=== PATIENT | male | born 1985 | race American Indian/Alaskan Native ===

== ENCOUNTER 2016-10-04 23:24 | Inpatient (IN) | payer OTHER ==
[2016-10-05 01:04] LABS: Basophils % (Auto) 0.7 % (0.0-1.8); Eosinophils % (Auto) 3.5 % (0.0-4.3); Hematocrit 44.7 % (35.5-45.6); Hemoglobin 15.2 gm/dl (11.8-15.2); Mean Corpuscular HGB Conc 34 % (32-34); Mean Corpuscular Hemoglobin 28 pg (28-32); Mean Corpuscular Volume 82 fl (84-94); Platelet Count 156 K/mm3 (140-440); Red Blood Count 5.43 M/mm3 (3.65-5.03); Red Cell Distribution Width 13.3 % (13.2-15.2); White Blood Count 5.7 K/mm3 (4.5-11.0)
[2016-10-05 01:30] LABS: Alanine Aminotransferase 42 units/L (7-56); Albumin/Globulin Ratio 0.9 %; Alkaline Phosphatase 94 units/L (35-129); Anion Gap 24 mmol/L; BUN/Creatinine Ratio 18.33; Blood Urea Nitrogen 22 mg/dL (9-20); Calcium 9.1 mg/dL (8.4-10.2); Carbon Dioxide 19 mmol/L (22-30); Chloride 89.1 mmol/L (98-107); Lipase 49 units/L (13-60); Potassium 4.6 mmol/L (3.6-5.0); Sodium 127 mmol/L (137-145); Total Protein 8.4 g/dL (6.3-8.2)
[2016-10-05 01:45] LABS: Glucose 540 mg/dL (75-100)
[2016-10-05 03:07] LABS: Bilirubin,Urine NEG (Negative); Blood,Urine MOD (Negative); Ketones,Urine 20 mg/dL (Negative); Leukocyte Esterase,Urine NEG (Negative); Mucus,Urine FEW /HPF; Nitrite,Urine NEG (Negative); Protein,Urine <15 mg/dL mg/dL (Negative); Urobilinogen,Urine < 2.0 mg/dL (<2.0)
[2016-10-05] MEDS ORDERED: NACL 0.9% 1000 ML 1,000 ML IV ONE ×2 (04:08)
--- NOTE | 2016-10-05 04:10 | Emergency Department Report ---
ED General Adult HPI - General Chief complaint: Dizziness Stated complaint: DRY MOUTH/DIZZY/LOWER BACK PAIN Time Seen by Provider: 10/05/16 04:00 Source: patient Mode of arrival: Ambulatory Limitations: No Limitations - History of Present Illness Initial comments: 31-year-old male with a past medical history asthma and seizures presents to the hospital with complaints of not feeling well for about 1 week. Patient complains of generalized body aches, fatigue, and lightheadedness. When questioned he does admit to increased urine output for the last 4 days and increased thirst typically in the morning. He has intermittent tingling to his fingertips. Patient had one episode of nausea and vomiting several days ago and has intermittent loose stools. No reports of fever fever. Patient complains of mild abdominal pain that started after arrival. No previous history of diabetes. No PMD. - Related Data Previous Rx's Medication Instructions Recorded Last Taken Type ALBUTEROL Inhaler [Proair] 2 puff IH QID PRN #1 inh 06/28/15 Unknown Rx Azithromycin [Zithromax Z-SHAHNAZ] 250 mg PO DAILY #6 tablet 06/28/15 Unknown Rx Guaifenesin/Codeine Phosphate 5 - 10 ml PO Q6H PRN #120 ml 06/28/15 Unknown Rx [Guaifenesin-Codeine Liquid] predniSONE [Deltasone] 40 mg PO QDAY #10 tab 06/28/15 Unknown Rx Allergies Allergy/AdvReac Type Severity Reaction Status Date / Time No Known Allergies Allergy Verified 06/28/15 06:43 ED Review of Systems ROS: Stated complaint: DRY MOUTH/DIZZY/LOWER BACK PAIN Other details as noted in HPI Comment: All other systems reviewed and negative Other: Constitutional: No fevers chills Eyes: No eye pain visual changes ENT: No ear pain or throat pain Neck: Denies pain Respiratory: Denies cough wheezing shortness of breath Cardiovascular: Denies chest pain, palpitations, syncope GI: As per HPI : Denies dysuria Musculoskeletal: Denies back pain, Skin: Denies rash, lesions, erythema Neurologic: Denies headache, numbness, weakness Psychiatric: Denies suicidal ideation, hallucinations ED Past Medical Hx - Past Medical History Previous Medical History?: Yes Hx Seizures: Yes Hx Asthma: Yes - Surgical History Past Surgical History?: No - Social History Smoking Status: Current Every Day Smoker Substance Use Type: Marijuana - Medications Home Medications: Home Medications Medication Instructions Recorded Confirmed Last Taken Type ALBUTEROL Inhaler [Proair] 2 puff IH QID PRN #1 inh 06/28/15 Unknown Rx Azithromycin [Zithromax Z-SHAHNAZ] 250 mg PO DAILY #6 tablet 06/28/15 Unknown Rx Guaifenesin/Codeine Phosphate 5 - 10 ml PO Q6H PRN #120 ml 06/28/15 Unknown Rx [Guaifenesin-Codeine Liquid] predniSONE [Deltasone] 40 mg PO QDAY #10 tab 06/28/15 Unknown Rx ED Physical Exam - General Limitations: No Limitations - Other Other exam information: General: No limitations, patient is alert in no acute distress Head exam: Atraumatic, normocephalic Eyes exam: Normal appearance, nonicteric sclera ENT: Moist mucous membrane Neck exam: Normal inspection, full range of motion, no meningismus nontender Respiratory exam: Clear to auscultation bilateral, no wheezes, rales, crackles Cardiovascular: Normal rate and rhythm, normal heart sounds Abdomen: Soft, nondistended, with normal bowel sounds, no rebound, or guarding. Mild right lower quadrant tenderness described as a "tightness" Extremity: Full range of motion normal inspection no deformity Back: Normal Inspection, full range of motion, no tenderness Neurologic: Alert, oriented x3, cranial nerves intact, no motor or sensory deficit Psychiatric: normal affect, normal mood Skin: Warm, dry, intact ED Course Vital Signs 10/05/16 00:13 Temperature 99.6 F Pulse Rate 103 H Respiratory 20 Rate Blood Pressure 135/82 O2 Sat by Pulse 96 Oximetry - Reevaluation(s) Reevaluation #1: 10/05/16 04:14 Meds ordered: 2 L normal saline, regular insulin 10 units ED Medical Decision Making - Lab Data Result diagrams: 10/05/16 00:39 10/05/16 00:39 Lab Results 10/05/16 10/05/16 10/05/16 Range/Units 00:39 00:39 03:47 WBC 5.7 (4.5-11.0) K/mm3 RBC 5.43 H (3.65-5.03) M/mm3 Hgb 15.2 (11.8-15.2) gm/dl Hct 44.7 (35.5-45.6) % MCV 82 L (84-94) fl MCH 28 (28-32) pg MCHC 34 (32-34) % RDW 13.3 (13.2-15.2) % Plt Count 156 (140-440) K/mm3 Lymph % (Auto) 33.8 (13.4-35.0) % [place] % (Auto) 5.5 (0.0-7.3) % Eos % (Auto) 3.5 (0.0-4.3) % Baso % (Auto) 0.7 (0.0-1.8) % Lymph # 1.9 (1.2-5.4) K/mm3 [place] # 0.3 (0.0-0.8) K/mm3 Eos # 0.2 (0.0-0.4) K/mm3 Baso # 0.0 (0.0-0.1) K/mm3 Seg Neutrophils % 56.5 (40.0-70.0) % Seg Neutrophils # 3.2 (1.8-7.7) K/mm3 Sodium 127 L (137-145) mmol/L Potassium 4.6 (3.6-5.0) mmol/L Chloride 89.1 L (98-107) mmol/L Carbon Dioxide 19 L (22-30) mmol/L Anion Gap 24 mmol/L BUN 22 H (9-20) mg/dL Creatinine 1.2 (0.8-1.5) mg/dL Estimated GFR > 60 ml/min BUN/Creatinine Ratio 18.33 % Glucose 540 H* (75-100) mg/dL POC Glucose 456 H (70-105) Calcium 9.1 (8.4-10.2) mg/dL Total Bilirubin 0.30 (0.1-1.2) mg/dL AST 39 (5-40) units/L ALT 42 (7-56) units/L Alkaline Phosphatase 94 (35-129) units/L Total Protein 8.4 H (6.3-8.2) g/dL Albumin 4.0 (3.9-5) g/dL Albumin/Globulin Ratio 0.9 % Lipase 49 (13-60) units/L Urine Color (Yellow) Urine Turbidity (Clear) Urine pH (5.0-7.0) Ur Specific [place] (1.003-1.030) Urine Protein (Negative) mg/dL Urine Glucose (UA) (Negative) mg/dL Urine Ketones (Negative) mg/dL Urine Blood (Negative) Urine Nitrite (Negative) Urine Bilirubin (Negative) Urine Urobilinogen (<2.0) mg/dL Ur Leukocyte Esterase (Negative) Urine WBC (Auto) (0.0-6.0) /HPF Urine RBC (Auto) (0.0-6.0) /HPF U Epithel Cells (Auto) (0-13.0) /HPF Urine Mucus /HPF 10/05/16 Range/Units Unknown WBC (4.5-11.0) K/mm3 RBC (3.65-5.03) M/mm3 Hgb (11.8-15.2) gm/dl Hct (35.5-45.6) % MCV (84-94) fl MCH (28-32) pg MCHC (32-34) % RDW (13.2-15.2) % Plt Count (140-440) K/mm3 Lymph % (Auto) (13.4-35.0) % [place] % (Auto) (0.0-7.3) % Eos % (Auto) (0.0-4.3) % Baso % (Auto) (0.0-1.8) % Lymph # (1.2-5.4) K/mm3 [place] # (0.0-0.8) K/mm3 Eos # (0.0-0.4) K/mm3 Baso # (0.0-0.1) K/mm3 Seg Neutrophils % (40.0-70.0) % Seg Neutrophils # (1.8-7.7) K/mm3 Sodium (137-145) mmol/L Potassium (3.6-5.0) mmol/L Chloride (98-107) mmol/L Carbon Dioxide (22-30) mmol/L Anion Gap mmol/L BUN (9-20) mg/dL Creatinine (0.8-1.5) mg/dL Estimated GFR ml/min BUN/Creatinine Ratio % Glucose (75-100) mg/dL POC Glucose (70-105) Calcium (8.4-10.2) mg/dL Total Bilirubin (0.1-1.2) mg/dL AST (5-40) units/L ALT (7-56) units/L Alkaline Phosphatase (35-129) units/L Total Protein (6.3-8.2) g/dL Albumin (3.9-5) g/dL Albumin/Globulin Ratio % Lipase (13-60) units/L Urine Color Straw (Yellow) Urine Turbidity Clear (Clear) Urine pH 5.0 (5.0-7.0) Ur Specific [place] 1.029 (1.003-1.030) Urine Protein <15 mg/dl (Negative) mg/dL Urine Glucose (UA) >=500 (Negative) mg/dL Urine Ketones 20 (Negative) mg/dL Urine Blood Mod (Negative) Urine Nitrite Neg (Negative) Urine Bilirubin Neg (Negative) Urine Urobilinogen < 2.0 (<2.0) mg/dL Ur Leukocyte Esterase Neg (Negative) Urine WBC (Auto) 1.0 (0.0-6.0) /HPF Urine RBC (Auto) 1.0 (0.0-6.0) /HPF U Epithel Cells (Auto) < 1.0 (0-13.0) /HPF Urine Mucus Few /HPF - Medical Decision Making Plan to admit patient to the hospital for further treatment of new onset diabetes with associated hypoglycemia urine ketosis. Venous pH pending. Mild associated anion gap - Differential Diagnosis diabetes, DKA, hyperglycemia, UTI, viral syndrome Critical Care Time: No Critical care attestation.: If time is entered above; I have spent that time in minutes in the direct care of this critically ill patient, excluding procedure time. ED Disposition Clinical Impression: Diabetes mellitus, new onset, Urine ketones Disposition: 09 OP ADMIT IP TO THIS HOSP Is pt being admited?: Yes Condition: Stable Time of Disposition: 04:09 (Dr Young/hosp)
[2016-10-05] MEDS ORDERED: D50W (25GM) IV PRN ×3 (04:56→17:49)
[2016-10-05] MEDS ORDERED: NACL 0.9% 1000 ML 1,000 ML IV SCH ×2 (05:00→11:00)
[2016-10-05] MEDS ORDERED: NovoLIN R 100 UNITS in NACL 0.9% 99 ML IV SCH (05:00)
[2016-10-05] MEDS: HEPARIN SUB-Q SCH ×3 (05:32→22:00)
--- NOTE | 2016-10-05 05:32 | History and Physical Report ---
History of Present Illness Date of examination: 10/05/16 Date of admission: 10/05/16 Chief complaint: Chief complaint is dizziness other complaint include polyuria and polydipsia and weakness History of present illness: History of presenting illness, patient is a 31-year-old male who said he has been having dizziness going on for some time and has been feeling tired recently patient also noted increased urination and increased intake of water for the last few days, there is also history of weight loss and weakness. Patient denied history of fever or chills denied history of nausea vomiting but said that he's been having generalized body pain especially in the abdomen, there is no history of chest pain or shortness of breath Past History Past Medical History: hypertension, seizures, other (ASTHMA) Past Surgical History: No surgical history Social history: smoking Family history: diabetes Medications and Allergies Allergies Allergy/AdvReac Type Severity Reaction Status Date / Time No Known Allergies Allergy Verified 06/28/15 06:43 Home Medications Medication Instructions Recorded Confirmed Last Taken Type ALBUTEROL Inhaler [Proair] 2 puff IH QID PRN #1 inh 06/28/15 Unknown Rx Azithromycin [Zithromax Z-SHAHNAZ] 250 mg PO DAILY #6 tablet 06/28/15 Unknown Rx Guaifenesin/Codeine Phosphate 5 - 10 ml PO Q6H PRN #120 ml 06/28/15 Unknown Rx [Guaifenesin-Codeine Liquid] predniSONE [Deltasone] 40 mg PO QDAY #10 tab 06/28/15 Unknown Rx Active Meds: Active Medications Dextrose (D50w (25gm)) 0 ml IV PRN PRN PRN Reason: Hypoglycemia Heparin Sodium (Porcine) (Heparin) 5,000 unit SUB-Q Q8HR MERISSA Sodium Chloride (Nacl 0.9% 1000 Ml) 1,000 mls @ 300 mls/hr IV DIRECT MERISSA Stop: 10/05/16 08:19 Insulin Human Regular 100 (units/ Sodium Chloride) 100 mls @ 1 mls/hr IV TITR MERISSA; 1 UNITS/HR PRN Reason: Protocol Review of Systems Constitutional: weight loss, weakness, no weight gain, no fever, no chills, no sweats, no anorexia, no fatigue, no malaise, no lethargy, no daytime sleepiness Eyes: bilateral: other (NO BILATERAL EYE SYMPTOMS) Ears, nose, mouth and throat: no ear pain, no ear discharge, no tinnitis, no decreased hearing, no nose pain, no nasal congestion, no nasal discharge, no sinus pressure, no bleeding gums, no dental pain, no mouth pain, no dysphagia, no hoarseness, no sore throat, no swelling in mouth, no swelling in throat, no post-nasal drip, no headache, no vertigo, no pain front of neck, no neck fullness/pressure Cardiovascular: no chest pain, no orthopnea, no palpitations, no rapid/ irregular heart beat, no edema, no syncope, no lightheadedness, no shortness of breath, no paroxysmal nocturnal dyspnea, no claudication, no phlebitis, no high blood pressure Respiratory: no cough, no excessive sputum, no hemoptysis, no wheezing, no respiratory infections Gastrointestinal: abdominal pain, no nausea, no vomiting, no diarrhea, no constipation, no change in bowel habits, no hematemesis, no melena, no hematochezia, no loss of appetite, no jaundice, no dyspepsia/bloating, no early satiety Genitourinary Male: urinary frequency, nocturia, polyuria, no dysuria, no hematuria, no flank pain, no discharge, no urinary hesitancy, no incontinence, no erectile dysfunction, no impotence, no decreased libido, no testicular pain, no testicular lump, no difficulties fathering child Rectal: no pain, no incontinence, no itching, no hemorrhoids, no flatulence Musculoskeletal: myalgias, no neck stiffness, no neck pain, no arm numbness/ tingling, no low back pain, no shooting leg pain, no hot joints, no morning stiffness, no atrophy, no fractures, no loss of height Integumentary: no pruritis, no redness, no sores, no wounds, no jaundice, no boils, no blisters, no bullae, no lesions, no darkening of skin, no depigmentation, no acne, no dryness, no brittle nails, no striae, no hirsutism, no foot/leg ulcers Neurological: seizures, no head injury, no transient paralysis, no paralysis, no weakness, no parathesias, no numbness, no tingling, no syncope, no vertigo, no headaches, no migraines, no convulsions, no aphasia, no change in speech, no change in mentation, no confusion, no memory loss, no motor disturbance, no sensory deficit, no double vision, no hearing difficulties, no burning pain, no paralysis Psychiatric: no memory loss, no change in sleep habits, no sleep disturbances, no insomnia, no hypersomnia, no change in appetite, no change in libido, no suicidal ideation, no disorientation, no paranoia, no hopelessness, no anhedonia , no anxiety attacks, no difficulties concentrating, no confusion, no irritability Endocrine: excessive thirst, polydipsia, polyuria, nocturia, no cold intolerance , no heat intolerance, no polyphagia, no excessive sweating, no flushing, no thyroid mass, no palpatations, no high blood sugars, no low blood sugars, no recent glucocorticoid use Hematologic/Lymphatic: no easy bruising, no easy bleeding, no lymphadenopathy, no lymphedema, no thrombophilia Allergic/Immunologic: no urticaria, no allergic rhinitis, no persistent infections, no anaphylaxis, no angioedema, no gluten intolerance, no seasonal allergies Exam - Constitutional Vitals: Temp Pulse Resp BP Pulse Ox 99.6 F 93 H 10 L 141/89 99 10/05/16 00:13 10/05/16 05:00 10/05/16 05:00 10/05/16 05:00 10/05/16 05:00 General appearance: Present: no acute distress - EENT Eyes: Present: PERRL, EOM intact ENT: clear oral mucosa, dentition normal, no oropharyngeal erythema, no poor dentition, no edentulous - Neck Neck: Present: supple, normal ROM. Absent: enlarged thyroid, masses or JVD, carotid bruits - Respiratory Respiratory effort: normal - Cardiovascular Rhythm: regular Heart Sounds: Present: S1 & S2. Absent: gallop, systolic murmur, diastolic murmur, click - Extremities Extremities: no ischemia, No edema Peripheral Pulses: within normal limits - Abdominal General gastrointestinal: Present: soft, non-tender, non-distended. Absent: tender, distended, rigid, hepatomegaly, splenomegaly, mass, hernia Male genitourinary: Present: deferred - Rectal Rectal Exam: deferred - Integumentary Integumentary: Present: clear, warm, dry, normal turgor. Absent: erythema, jaundice, clammy - Musculoskeletal Musculoskeletal: strength equal bilaterally - Psychiatric Psychiatric: appropriate mood/affect - Neurologic Neurologic: CNII-XII intact Results - Labs CBC & Chem 7: 10/05/16 00:39 07 00:39 Labs: Laboratory Last Values WBC 5.7 K/mm3 (4.5-11.0) 10/05/16 00:39 RBC 5.43 M/mm3 (3.65-5.03) H 10/05/16 00:39 Hgb 15.2 gm/dl (11.8-15.2) 10/05/16 00:39 Hct 44.7 % (35.5-45.6) 10/05/16 00:39 MCV 82 fl (84-94) L 10/05/16 00:39 MCH 28 pg (28-32) 10/05/16 00:39 MCHC 34 % (32-34) 10/05/16 00:39 RDW 13.3 % (13.2-15.2) 10/05/16 00:39 Plt Count 156 K/mm3 (140-440) 10/05/16 00:39 Lymph % (Auto) 33.8 % (13.4-35.0) 10/05/16 00:39 [place] % (Auto) 5.5 % (0.0-7.3) 10/05/16 00:39 Eos % (Auto) 3.5 % (0.0-4.3) 10/05/16 00:39 Baso % (Auto) 0.7 % (0.0-1.8) 10/05/16 00:39 Lymph # 1.9 K/mm3 (1.2-5.4) 10/05/16 00:39 [place] # 0.3 K/mm3 (0.0-0.8) 10/05/16 00:39 Eos # 0.2 K/mm3 (0.0-0.4) 10/05/16 00:39 Baso # 0.0 K/mm3 (0.0-0.1) 10/05/16 00:39 Seg Neutrophils % 56.5 % (40.0-70.0) 10/05/16 00:39 Seg Neutrophils # 3.2 K/mm3 (1.8-7.7) 10/05/16 00:39 VBG pH 7.358 (7.320-7.420) 10/05/16 04:15 Sodium 127 mmol/L (137-145) L 10/05/16 00:39 Potassium 4.6 mmol/L (3.6-5.0) 10/05/16 00:39 Chloride 89.1 mmol/L (98-107) L 10/05/16 00:39 Carbon Dioxide 19 mmol/L (22-30) L 10/05/16 00:39 Anion Gap 24 mmol/L 10/05/16 00:39 BUN 22 mg/dL (9-20) H 10/05/16 00:39 Creatinine 1.2 mg/dL (0.8-1.5) 10/05/16 00:39 Estimated GFR > 60 ml/min 10/05/16 00:39 BUN/Creatinine Ratio 18.33 % 10/05/16 00:39 Glucose 540 mg/dL (75-100) H* 10/05/16 00:39 POC Glucose 440 (70-105) H 10/05/16 05:06 Calcium 9.1 mg/dL (8.4-10.2) 10/05/16 00:39 Total Bilirubin 0.30 mg/dL (0.1-1.2) 10/05/16 00:39 AST 39 units/L (5-40) 10/05/16 00:39 ALT 42 units/L (7-56) 10/05/16 00:39 Alkaline Phosphatase 94 units/L (35-129) 10/05/16 00:39 Total Protein 8.4 g/dL (6.3-8.2) H 10/05/16 00:39 Albumin 4.0 g/dL (3.9-5) 10/05/16 00:39 Albumin/Globulin Ratio 0.9 % 10/05/16 00:39 Lipase 49 units/L (13-60) 10/05/16 00:39 Urine Color Straw (Yellow) 10/05/16 Unknown Urine Turbidity Clear (Clear) 10/05/16 Unknown Urine pH 5.0 (5.0-7.0) 10/05/16 Unknown Ur Specific [place] 1.029 (1.003-1.030) 10/05/16 Unknown Urine Protein <15 mg/dl mg/dL (Negative) 10/05/16 Unknown Urine Glucose (UA) >=500 mg/dL (Negative) 10/05/16 Unknown Urine Ketones 20 mg/dL (Negative) 10/05/16 Unknown Urine Blood Mod (Negative) 10/05/16 Unknown Urine Nitrite Neg (Negative) 10/05/16 Unknown Urine Bilirubin Neg (Negative) 10/05/16 Unknown Urine Urobilinogen < 2.0 mg/dL (<2.0) 10/05/16 Unknown Ur Leukocyte Esterase Neg (Negative) 10/05/16 Unknown Urine WBC (Auto) 1.0 /HPF (0.0-6.0) 10/05/16 Unknown Urine RBC (Auto) 1.0 /HPF (0.0-6.0) 10/05/16 Unknown U Epithel Cells (Auto) < 1.0 /HPF (0-13.0) 10/05/16 Unknown Urine Mucus Few /HPF 10/05/16 Unknown Assessment and Plan - Patient Problems (1) DKA (diabetic ketoacidoses) Current Visit: Yes Status: Acute Qualifiers: Diabetes mellitus type: D Diabetes mellitus complication detail: D Plan to address problem: Patient will be admitted to the unit for DKA using DKA pathway and will be on IV insulin drip by protocol, patient will also be on IV normal saline starting at 300 mL an hour I will have Accu-Chek every hour and basic metabolic panel and every 2 hours. Patient's IV fluid will be changed to D5 half-normal with potassium supplement when blood sugar is below 250 mg/dl patient will be on IV Zofran for nausea vomiting
[2016-10-05 06:30] LABS: Anion Gap 20 mmol/L; BUN/Creatinine Ratio 15.83; Blood Urea Nitrogen 19 mg/dL (9-20); Carbon Dioxide 21 mmol/L (22-30); Chloride 93.5 mmol/L (98-107); Glucose 479 mg/dL (75-100); Potassium 3.9 mmol/L (3.6-5.0); Sodium 131 mmol/L (137-145)
[2016-10-05 06:44] LABS: Magnesium 2.1 mg/dL (1.7-2.3); Phosphorous 2.8 mg/dL (2.5-4.5)
--- NOTE | 2016-10-05 08:15 | Consultation ---
History of Present Illness Consult date: 10/05/16 Requesting physician: STANLEY WU History of present illness: Patient is a 31-year-old male who said he has been having dizziness going on for some time and has been feeling tired recently patient also noted increased urination and increased intake of water for the last few days, there is also history of weight loss and weakness. Patient denied history of fever or chills denied history of nausea vomiting but said that he's been having generalized body pain especially in the abdomen, there is no history of chest pain or shortness of breath. Patient has diabetic ketoacidosis and has been admitted to the ICU for DKA management per protocol Past History Past Medical History: hypertension, seizures, other (ASTHMA) Past Surgical History: No surgical history Social history: smoking Family history: diabetes Medications and Allergies Allergies Allergy/AdvReac Type Severity Reaction Status Date / Time No Known Allergies Allergy Verified 06/28/15 06:43 Home Medications Medication Instructions Recorded Confirmed Last Taken Type No Known Home Medications [No 10/05/16 10/05/16 Unknown History Reported Home Medications] Active Meds: Active Medications Dextrose (D50w (25gm)) 0 ml IV PRN PRN PRN Reason: Hypoglycemia Heparin Sodium (Porcine) (Heparin) 5,000 unit SUB-Q Q8HR MERISSA Last Admin: 10/05/16 05:32 Dose: 5,000 unit Sodium Chloride (Nacl 0.9% 1000 Ml) 1,000 mls @ 300 mls/hr IV DIRECT MERISSA Stop: 10/05/16 08:19 Last Admin: 10/05/16 05:32 Dose: 300 mls/hr Insulin Human Regular 100 (units/ Sodium Chloride) 100 mls @ 1 mls/hr IV TITR MERISSA; 1 UNITS/HR PRN Reason: Protocol Last Titration: 10/05/16 06:56 Dose: 7 units/hr, 7 mls/hr Review of Systems All systems: negative (as documented in HPI) Physical Examination Vital signs: Vital Signs Temp Pulse Resp BP Pulse Ox 99.6 F 103 H 20 135/82 96 10/05/16 00:13 10/05/16 00:13 10/05/16 00:13 10/05/16 00:13 10/05/16 00:13 General appearance: no acute distress, other (obese) Eyes: non-icteric ENT: oropharynx dry Neck: supple, no lymphadenopathy, no JVD Effort: mildly labored Ascultation: Bilateral: clear, diminished breath sounds Cardiovascular: regular rate and rhythm Gastrointestinal: normoactive bowel sounds, soft, non-tender, non-distended Integumentary: normal Extremities: no cyanosis, no edema, pink and warm, pulses normal, no ischemia or petechiae Musculoskeletal: no deformities normal mental status, non-focal exam, pupils equal and round, CN II-XII normal, motor strength normal and mood appropriate, affect normal Results - Laboratory Findings CBC and BMP: 10/05/16 00:39 10/05/16 21:30 Abnormal lab findings: Abnormal Labs 10/05/16 10/05/16 10/05/16 05:06 05:43 06:01 Sodium 131 L Chloride 93.5 L Carbon Dioxide 21 L Glucose 479 H POC Glucose 440 H 456 H Calcium 8.0 L 10/05/16 10/05/16 06:49 07:50 Sodium Chloride Carbon Dioxide Glucose POC Glucose 353 H 296 H Calcium - Diagnostic Findings Chest x-ray: image reviewed Assessment and Plan - Patient Problems (1) DKA (diabetic ketoacidoses) Current Visit: Yes Status: Acute Qualifiers: Diabetes mellitus type: D Diabetes mellitus complication detail: D Plan to address problem: Continue with DKA management per protocol Diabetic education (2) Diabetes mellitus, new onset Current Visit: Yes Status: Acute Plan to address problem: Get HBA1C, get fasting lipids, get TSH Diabetic education (3) Obesities, morbid Current Visit: Yes Status: Acute Qualifiers: Obesity type: O Plan to address problem: Lifestyle modifications, diet and exercise counselling
[2016-10-05 08:25] LABS: Anion Gap 19 mmol/L; BUN/Creatinine Ratio 15.45; Blood Urea Nitrogen 17 mg/dL (9-20); Carbon Dioxide 22 mmol/L (22-30); Chloride 98.5 mmol/L (98-107); Glucose 369 mg/dL (75-100); Potassium 3.6 mmol/L (3.6-5.0); Sodium 136 mmol/L (137-145)
--- NOTE | 2016-10-05 09:06 | Admit Criteria Form ---
Admission Criteria Documentation: GENERAL ADMISSION CRITERIA (Place 'X' for any and all applicable criteria): Admission is indicated for ANY ONE of the following: [ ]I. Hemodynamic instability as indicated by ANY ONE of the following(1)(2) (3)(4)(5): [ ]a) Vital sign abnormality not readily corrected by appropriate treatment within 12 to 24 hours indicated by ANY ONE of the following: [ ]i) Hypotension [ ]ii) Symptomatic Tachycardia unresponsive to treatment (eg , analgesia, fluids, sedation as indicated) [ ]iii) Orthostatic vital sign changes unresponsive to treatment (eg, fluids) [ ]b) Vital sign abnormality that is severe indicated by ANY ONE of the following: [ ]i) Inadequate perfusion indicated by ANY ONE of the following: [ ]1) Lactic acidosis (greater than 2 mmol/L) [ ]2) New abnormal capillary refill (greater than 3 seconds) [ ]3) Other metabolic acidosis (arterial pH less than 7.35) not otherwise explained [ ]4) Reduced urine output [ ]5) Altered mental status [ ]6) Myocardial Ischemia [ ]v) Mean arterial pressure[A] less than 60 mm Hg [ ]vi) Mean arterial pressure[A] less than 70 mm Hg after 30 minutes of appropriate treatment (eg, fluid resuscitation) [ ]vii) IV inotropic or vasopressor medication required to maintain adequate blood pressure or perfusion [ ]viii) Sustained heart rate greater than 120 beats per minute in adult or child 6 years or older[B]] [ ]II. Hypertension requiring inpatient treatment as indicated by ANY ONE of the following(6)(7)(8): [ ]a) SBP greater than 220 mm Hg or DBP greater than 120 mm Hg despite treatment [ ]b) SBP greater than 140 mm Hg or DBP greater than 100 mm Hg with evidence of acute end organ damage as indicated by ANY ONE of the following: [ ]i) Encephalopathy [ ]ii) Acute renal failure as indicated by new onset of ANY ONE of the following(9)(10)(11)(12)(13): [ ]1) A 3-fold rise in serum creatinine from baseline [ ]2) Serum creatinine greater than 4 mg/dL ( 354 micromoles/L) with acute rise greater than 0.5 mg/dL (44.2 micromoles/L) [ ]3) Reduction of more than 75% in estimated glomerular filtration rate from baseline [ ]4) Estimated glomerular filtration rate less than 35 mL/min/1.73m2 (0.59 mL/sec/1.73m2) in child up to 18 years of age [ ]5) Cessation of urine output indicated by ALL of the following: [ ]A. Adequate volume status [ ]B. Inadequate urine output as indicated by ANY ONE of the following: [ ]a. Urine output less than 0.3 mL/kg/hr for 24 hours [ ]b. Anuria (urine output less than 0.1 mL/kg/hr) for 12 hours [ ]iii) Aortic dissection [ ]iv) Myocardial ischemia [ ]v) Left ventricular heart failure [ ]vi) Retinal hemorrhage [ ]vii) Other significant finding [ ]c) Hypertension in child requiring inpatient treatment as indicated by ALL of the following(14)(15)(16): [ ]i) Outpatient treatment not effective, not available, or not appropriate [ ]ii) SBP or DBP greater than 95th percentile for age [ ]iii) Evidence of acute end organ damage as indicated by ANY ONE of the following: [ ]1) Altered mental status [ ]2) Acute renal failure as indicated by new onset of ANY ONE of the following(9)(10)(11)(12)(13): [ ]A. A 3-fold rise in serum creatinine from baseline [ ]B. Serum creatinine greater than 4 mg/dL (354 micromoles/L) with acute rise greater than 0.5 mg/dL (44.2 micromoles/L) [ ]C. Reduction of more than 75% in estimated glomerular filtration rate from baseline [ ]D. Estimated glomerular filtration rate less than 35 mL/min/1.73m2 (0.59 mL/sec/1.73m2)in child up to 18 years of age [ ]E. Cessation of urine output indicated by ALL of the following: [ ]a. Adequate volume status [ ]b. Inadequate urine output as indicated by ANY ONE of the following: [ ]1) Urine output less than 0.3 mL/kg/hr for 24 hours [ ]2) Anuria (urine output less than 0.1 mL/kg/hr) for 12 hours [ ]3) Severe headache [ ]4) Visual disturbance [ ]5) Retinal hemorrhage [ ]6) Other significant finding [ ]III. Acute cardiac or peripheral ischemia as indicated by ANY ONE of the following: [ ]a) Acute coronary syndrome(17)(18) [ ]b) Acute peripheral ischemia (eg, pulseless, cool, mottled, or cyanotic extremity)(19) [ ]IV. Cardiac arrhythmias or findings of immediate concern indicated by ANY ONE of the following(20)(21): [ ]a) Heart rhythms that are inherently dangerous or unstable indicated by ANY ONE of the following(22)(23)(24): [ ]i) Resuscitated ventricular fibrillation or cardiac arrest [ ]ii) Ventricular escape rhythm [ ]iii) Sustained ventricular tachycardia (30 seconds or more of ventricular rhythm at greater than 100 beats per minute) [ ]iv) Nonsustained ventricular tachycardia and ANY ONE of the following: [ ]1) Suspected cardiac ischemia as cause or consequence of ventricular tachycardia [ ]2) In setting of acute myocarditis [ ]b) Unstable cardiac conduction defects indicated by ANY ONE of the following(24)(25)(26): [ ]i) Type II second-degree atrioventricular block [ ]ii) Third-degree atrioventricular block [ ]iii) New-onset left bundle branch block with suspected myocardial ischemia [ ]c) Any heart rhythm and ANY ONE of the following(22)(23)(27)(28)( 29): [ ] i) Continuous long-term ECG monitoring needed (eg, initiation of drug requiring monitoring for more than 24 hours) [ ] ii) Patient has automatic implanted cardioverter defibrillator that is repeatedly firing, malfunctioning, or in need of immediate adjustment of settings beyond the scope of ambulatory or observation care. [ ]d) Heart rhythms of concern due to ANY ONE of the following: [ ]i) Hypotension [ ]ii) Respiratory distress [ ]iii) Association with other significant symptoms (eg, bradycardia with syncope or ongoing dizziness, supraventricular tachycardia with chest pain) (27)(28) (30) [ ] V. Severe heart failure as indicated by ANY ONE of the following ( 31)(32): [ ]a) Respiratory distress [ ]b) Hypotension [ ]c) Anasarca (refractory to outpatient therapy) [ ]d) Cardiac arrhythmias of immediate concern [ ]e) Myocardial ischemia [ ]. Respiratory abnormalities, including ANY ONE of the following(33)(34) (35)(36): [ ]a) Respiratory rate greater than 30 breaths per minute unresponsive to treatment [A] [ ]b) New saturation of arterial oxygen less than 90% [ ]c) New partial pressure of carbon dioxide greater than 44 mm Hg ( 5.9 kPa) [ ]d) Supplemental oxygen or respiratory treatments needed that are new or not performable at other levels of care [ ]e) New-onset cyanosis [ ]f) Inability to protect airway [ ]g) Chronic lung disease with severe deterioration (not responsive to emergency and observation care treatment as appropriate) as indicated by ANY ONE of the following(34)(36 ): [ ]i) SaO2 5% below baseline in patient with chronic hypoxemia [ ]ii) New requirement for supplemental oxygen to keep SaO2 at baseline or acceptable level [ ]iii) Required supplemental oxygen performable only in acute inpatient setting [ ]iv) Severe airflow or ventilation abnormalities [ ]v) Previously mobile patient unable to walk between rooms [ ]vi Inability to eat or sleep due to dyspnea [ ]vii) Rapid rate of exacerbation onset [ ]viii) Altered mental status ]VII. Severe airflow or ventilation abnormalities (not responsive to emergency and observation care treatment as appropriate) as indicated by ANY ONE of the following(33)(34)(35)(37): [ ]a) PCO2 greater than 42 mm Hg (5.6 kPa) and pH less than 7.35 (new ) [ ]b) Documented PCO2 increased more than 5 mm Hg (0.7 kPa) from disease baseline [ ]c) Airflow measurements [B] less than 60% of previous best or predicted (eg, peak expiratory flow rate less than 300 L/minute) despite intensive emergent treatment [C] [ ]d) Required respiratory treatments that are performable only in acute inpatient setting [ ]VIII. Impending or actual respiratory arrest ( Also use Respiratory Failure GRG for severe respiratory disease and long-term mechanical ventilation patients) [ ]IX. Neurologic abnormalities, including ANY ONE of the following: [ ]a) New findings that suggest ANY ONE of the following: [ ]i) [employer] infection(38) [ ]ii) Cerebral bleeding, ischemia, or vasospasm(39)(40) [ ]iii) Increased intracranial pressure, hydrocephalus, or cerebral edema(41)(42)(43) [ ]iv) Spinal cord injury(44) [ ]b) Uncontrolled seizures(45) [ ]c) New-onset coma (eg, [place] coma scale score less than 9) or unexplained abnormal mental status (eg, [place] coma scale score less than 14) [D](41)(46)(47) [ ]X. New-onset severe neurologic findings requiring inpatient care; examples include(42)(48)(49): [ ]a) Papilledema [ ]b) Cerebral edema [ ]c) Mass effect on CT scan [ ]XI. Suspected acute intra-abdominal process with peritoneal signs, abdominal mass, or similar findings (50)(51)(52) [X ]XII. Severe physiologic disorder remaining after emergency or observation level care (as appropriate) as indicated by ANY ONE of the following (53): [ ]a) Significant dehydration [X ]b) Diabetic ketoacidosis [ ]c) Hyperglycemic hyperosmolar state (eg, osmolality greater than 320 mOsm/kg (mmol/kg) [ ]d) Hypoglycemia [ ]e) Other (new) acid-base disorder with pH less than 7.35 or greater than 7.5(54) [ ]f) Thyroid storm (55) [ ]g) Myxedema coma (55) [ ]XIII. Abdominal abnormalities with ANY ONE of the following(56)(57): [ ]a) Absent bowel sounds with complete ileus [ ]b) Signs of intestinal obstruction or peritonitis [E] [ ]c) Nausea and vomiting that cannot be controlled with outpatient or observation care [ ]XIV. Acute renal failure as indicated by new onset of ANY ONE of the following(9)(10)(11)(12)(13): [ ]a) A 3-fold rise in serum creatinine from baseline [ ]b) Serum creatinine greater than 4 mg/dL (354 micromoles/L) with acute rise greater than 0.5 mg/dL (44.2 micromoles/L) [ ]c) Reduction of more than 75% in estimated glomerular filtration rate from baseline [ ]d) Estimated glomerular filtration rate less than 35 mL/min/ 1.73m2 (0.59 mL/sec/1.73m2) in child up to 18 years of age [ ]e) Cessation of urine output indicated by ALL of the following: [ ]i) Adequate volume status [ ]ii) Inadequate urine output as indicated by ANY ONE of the following: [ ]1) Urine output less than 0.3 mL/kg/hr for 24 hours [ ]2) Anuria (urine output less than 0.1 mL/kg/hr) for 12 hours [ ]XV. Significant uremic complications as indicated by ANY ONE of the following(58)(59)(60): [ ]a) Outpatient therapy is ineffective or not feasible for ANY ONE of the following: [ ]i) Severe heart failure [ ]ii) Severehypertension [ ]iii) Pleural effusion [ ]iv) Pericarditis or pericardial effusion [ ]b) Cardiac arrhythmias of immediate concern [ ]c) Intractable nausea or vomiting [ ]d) Recurrent seizures [ ]e) Encephalopathy [ ]f) Bleeding abnormalities (eg, platelet dysfunction) with active (eg, gastrointestinal) bleeding [ ]g) Dialysis indicated before long-term access or ambulatory arrangements can be made [ ]h) Significant metabolic or electrolyte abnormalities (eg, severe acidosis or hyperkalemia) [ ]XVI. High fever or other high-risk infection situation as indicated by ANY ONE of the following(61)(62)(63)(64): [ ]a) Outpatient and observation care antimicrobial treatment unavailable, not effective, or not appropriate [ ]b) Documented bacteremia [ ]c) Temperature greater than 40.5 degrees C (104.9 degrees F) ( oral) [ ]d) Temperature greater than 39.5 degrees C (103.1 degrees F) ( oral) or less than 36 degrees C (96.8 degrees F) (rectal) that does not respond to e treatment and observation care [ ] XVII. Temperature less than 95 degrees F (35 degrees C)(rectal)(65) [ ] XVIII. Severe nutritional abnormalities as indicated by ALL of the following (66)(67): [ ]a) Inability to tolerate or establish sufficient oral or other enteral nutrition in outpatient setting [ ]b) Parenteral nutrition regimen need that must be implemented on inpatient basis [ ] XIX. Severe electrolyte abnormalities indicated by ALL of the following(68) (69)(70): [ ]a) Electrolytes and associated findings are not as expected for patient baseline or acceptable treatment effects. [ ]b) Severe abnormalities indicated by ANY ONE of the following: [ ]i) Sodium less than 130 mEq/L (mmol/L) (new) [ ]ii)Sodium less than 135 mEq/L (mmol/L) with ANY ONE of the following: [ ]1) Uncorrectable (to near normal or chronic baseline) after trial of outpatient and emergency treatment [ ]2) Altered mental status [ ]3) Seizures [ ]4) Severe medical etiology requiring inpatient management (eg, heart failure, hypovolemia) [ ]iii) Sodium greater than 155 mEq/L (mmol/L) [ ]iv) Sodium greater than 150 mEq/L (mmol/L) with ANY ONE of the following: [ ]1) Uncorrectable (to near normal or chronic baseline) with outpatient and emergency treatment [ ]2) Altered mental status [ ]3) Seizures [ ]4) Severe medical etiology (eg, hypovolemia, diabetes insipidus) [ ]v) Potassium less than 2.5 mEq/L (mmol/L) despite outpatient and emergency treatment [ ]vi) Potassium less than 3 mEq/L (mmol/L) with ANY ONE of the following: [ ]1) Weakness [ ]2) Cardiac abnormality (eg, arrhythmia, conduction disturbance) [ ]3) Cardiac ischemia [ ]4) Ileus [ ]5) Ongoing medical cause requiring inpatient management (eg, acute renal wasting or SIADH) [ ]6) Other severe symptoms [ ]vii) Potassium greater than 6.5 mEq/L (mmol/L) [ ]viii) Potassium greater than 5 mEq/L (mmol/L) with ANY ONE of the following: [ ]1) Uncorrectable (to near normal or chronic baseline) with outpatient and emergency treatment [ ]2) Severe ECG findings [F] [ ]3) Acute worsening of renal failure (creatinine greater than 2.5 mg/dL (221 micromoles/L) or significant elevation for age and size) [ ]4) Severe weakness [ ]5) Severe medical etiology (eg, hemolysis, infection, drug overdose) [ ]ix) Calcium less than 7 mg/dL (1.75 mmol/L) despite outpatient and emergency treatment (72) [ ]x) Calcium less than 8 mg/dL (2 mmol/L) with significant symptoms or findings; examples include(72): [ ]1) Altered mental status [ ]2) Muscle spasms [ ]3) Seizures [ ]4) Breathing difficulty [ ]5) Cardiac abnormality (eg, arrhythmia or conduction disturbance) [ ]xi) Calcium greater than 14 mg/dL (3.5 mmol/L)(72) [ ]xii) Calcium greater than 12 mg/dL (3 mmol/L) with ANY ONE of the following(72): [ ]1) Uncorrectable (to near normal or chronic baseline) with outpatient and emergency treatment [ ]2) Significant dehydration or hypovolemia as indicated by ALL of the following(70)(73)(74): [ ]A. Not resolved with initial treatments [ ]B. Clinically significant dehydration as indicated by ANY ONE of the following: [ ]a. Vomiting refractory to outpatient treatment (ie, precluding oral rehydration) [ ]b. Inability to drink [ ]c. Hypernatremia or other electrolyte abnormality unable to be corrected with outpatient and emergency treatment [ ]d. Failure to remain hydrated with outpatient therapy [ ]e. Reduced urine output [ ]f. Hypotension [ ]g. Serious cause for dehydration requiring acute hospitalization (eg, bowel obstruction, increased intracranial pressure, infectious cause) [ ]h. Child with ANY ONE of the following(75): [ ]1) Severe abdominal tenderness [ ]2) Adequate care not available at home [ ]3) Severe dehydration ( greater than 9% loss of body weight) [ ]4) Significant symptoms or findings; examples include: [ ]A. Altered mental status [ ]B. Cardiac abnormality (eg, arrhythmia, conduction disturbance) [ ]C. Malignant etiology requiring inpatient treatment [ ]xiii) Phosphorus less than 1 mg/dL (0.32 mmol/L) [ ]xiv) Phosphorus less than 1.5 mg/dL (0.48 mmol/L) with ANY ONE of the following: [ ]1) Patient unresponsive to outpatient and emergency treatment [ ]2) Significant symptoms or findings; examples include: [ ]A. Weakness [ ]B. Altered mental status [ ]C. Breathing difficulty [ ]D. Seizures [ ]E. Rhabdomyolysis [ ]xv) Phosphorus greater than 10 mg/dL (3.2 mmol/L) [ ]xvi) Phosphorus greater than 4.5 mg/dL (1.45 mmol/L) (new) with ANY ONE of the following: [ ]1) Severe medical etiology (eg, crush injury, acute renal failure) [ ]2) Associated hypocalcemia with significant findings; examples include: [ ]A. Neurologic symptoms [ ]B. Altered mental status [ ]C. Muscle spasms [ ]D. Seizures [ ]E. Breathing difficulty [ ]F. Cardiac abnormality (eg, arrhythmia, conduction disturbance) [ ]xvii) Magnesium less than 1 mg/dL (0.41 mmol/L) [ ]xviii) Magnesium less than 1.5 mg/dL (0.62 mmol/L) with ANY ONE of the following: [ ]1) Patient unresponsive to outpatient and emergency treatment [ ]2) Associated hypocalcemia with significant findings; examples include: [ ]A. Altered mental status [ ]B. Muscle spasms [ ]C. Seizures [ ]D. Breathing difficulty [ ]E. Cardiac abnormality (eg, arrhythmia , conduction disturbance) [ ]3) Associated hypokalemia (potassium less than 3 mEq/L (mmol/L)) with risk of arrhythmia [ ]xix) Magnesium greater than 4 mEq/L (2 mmol/L) [ ]xx) Magnesium greater than 2.5 mEq/L (1.25 mmol/L) with significant symptoms or findings; examples include: [ ]1) Weakness [ ]2) Altered mental status [ ]3) Cardiac abnormality (eg, arrhythmia, conduction disturbance) [ ]4) Breathing difficulty [ ]5) Severe medical etiology (eg, renal failure, hypovolemia) [ ]xxi) Uric acid greater than 20 mg/dL (1190 micromoles/L)(76) [ ]xxii) Uric acid greater than 8 mg/dL (476 micromoles/L) with significant symptoms or findings of tumor lysis syndrome; examples include(76): [ ]1) Creatinine greater than 1.5 times upper limit of normal [ ]2) Cardiac abnormality (eg, arrhythmia, conduction disturbance) [ ]3) Seizure [ ]XX. Acute blood loss causing significant abnormality as indicated by ANY ONE of the following(77)(78): [ ]a) Hemoglobin less than 10 g/dL (100 g/L) (not baseline) [ ]b) Hematocrit less than 30% (0.30) (not baseline) [ ]c) Repeat hematocrit decreased more than 2% (0.02) [ ]d) Uncontrolled bleeding [ ]XXI. Severe anemia indicated by ANY ONE of the following(78)(79): [ ]a) Altered mental status [ ]b) Chest pain [ ]c) Exertional dyspnea [ ]d) Syncope [ ]e) Other findings suggesting inadequate perfusion [ ]f) Treatment with transfusion or volume replacement is ineffective at resolving ANY ONE of the following [G]: [ ]i) Tachycardia for age [ ]ii) Orthostatic vital sign changes as indicated by ANY ONE of the following(80): [ ]1) Fall in SBP of 20 mm Hg or more 1 to 3 minutes after patient sits or stands from recumbent position [ ]2) Fall in DBP of 10 mm Hg or more 1 to 3 minutes after patient sits or stands from recumbent position [ ]XXII. High-risk low platelet count as indicated by ANY ONE of the following( 81)(82): [ ]a) Severe or life-threatening bleeding (eg, intracranial, major gastrointestinal, or extensive mucosal bleeding), with any reduced platelet count [ ]b) Platelet count less than 20,000/mm3 (20 x109/L) with any active bleeding [ ]c) Platelet count less than 10,000/mm3 (10 x109/L) with minor purpura or petechiae [ ]d) Platelet count less than 5000/mm3 (5 x109/L) [ ]e) Low platelet count with hemolytic anemia [ ]XXIII. Disseminated intravascular coagulation(77)(83) [ ]XXIV. Severe adverse drug or systemic toxin reaction requiring inpatient treatment; examples include(84)(85): [ ]a) Serotonin syndrome(86) [ ]b) Neuroleptic malignant syndrome(86) [ ]c) Cholinergic syndrome with severe symptoms (eg, bronchorrhea, weakness, mental status changes, seizures) [ ]d) Sympathetic syndrome with severe symptoms (eg, seizures, mental status changes, cardiac dysrhythmias) [ ]e) Anticholinergic syndrome [ ]XXV. Severe pain requiring acute inpatient management as indicated by ALL of the following (87)(88)(89): [ ]a) Continuous or frequent (eg, every 2 to 4 hours) parenteral analgesics required [H] [ ]b) Rapid improvement expected from treatment or acute intervention (eg, surgery, anesthesia procedure) [ ]XXVI.Severe behavioral health issues judged unmanageable at a lower level of care (eg, residential) in a patient who is ANY ONE of the following(91) [ ]a) Acutely suicidal [ ]b) A danger to self (eg, self-mutilating or suicidal behavior) [ ]c) A danger to others (eg, assaultive or homicidal behavior) [ ]d) Incapacitated because of grave disability (eg, inability to provide for self at lower level of care) (92) [ ]XXVII. Inpatient monitoring needed; examples include(1)(3)(87)(93)(94)(95)(96 ): [ ]a) Vital signs, neurologic signs, or vascular checks more frequently than every 4 hours [ ]b) Cardiac or respiratory monitoring beyond the scope (eg, over 24 hours) of observation care [ ]c) Pulmonary artery catheter monitoring [ ]d) Suspected compartment syndrome(97) (98) [ ]e) Cerebral bleeding, hydrocephalus, or vasospasm monitoring [ ]f) Increased intracranial pressure or cerebral edema monitoring [ ]g) monitoring [ ]XXVIII. Treatment requiring inpatient care; examples include: [ ]a) IV fluid to replace significant ongoing losses (greater than 3 L/m2 per day)(53) [ ]b) High concentration oxygen (greater than 40%)(33)(99)(100) [ ]c) Frequent respiratory therapy (more frequently than every 4 hours) to maintain airflow rates greater than 60% of baseline(33)(99)(100) [ ]d) Epidural analgesia(87) [ ]e) IV anticoagulation, vasoactive, or antiarrhythmic medication(19 )(23) [ ]f) Acute thrombolytics (generally require 24 hours of observation )(101)(102) [ ]XXIX. Emergency procedures needed; examples include: [ ]a) Emergency inpatient surgery [ ]b) Temporary pacemaker placement(103) [ ]c) Chest tube placement with active evacuation (eg, suction, drainage)(104) [ ]d) Emergent cardioversion(105) [ ]e) Emergent cardiac or vascular procedures (eg, cardiac catheterization, angioplasty) (17)(18) [ ]f) Emergent dialysis access placement and institution(10)(106) [ ]g) Emergent pericardiocentesis(107) [ ]h) Emergent plasmapheresis or leukapheresis(83) [ ]i) Emergent tracheostomy The original [facility] content created by [facility] has been revised. The portions of the content which have been revised are identified through the use of italic text or in bold, and [facility] has neither reviewed nor approved the modified material. All other unmodified content is copyright [facility]. Please see references footnoted in the original [facility] edition 2016 Admission Criteria Met: Yes
[2016-10-05 09:44] LABS: Anion Gap 18 mmol/L; Blood Urea Nitrogen 15 mg/dL (9-20); Calcium 7.9 mg/dL (8.4-10.2); Carbon Dioxide 22 mmol/L (22-30); Chloride 100.6 mmol/L (98-107); Glucose 291 mg/dL (75-100); Potassium 3.8 mmol/L (3.6-5.0); Sodium 137 mmol/L (137-145)
[2016-10-05] MEDS ORDERED: D5/0.45NS 1,000 ML IV SCH (11:00)
[2016-10-05 11:49] LABS: Anion Gap 18 mmol/L; BUN/Creatinine Ratio 15.55; Blood Urea Nitrogen 14 mg/dL (9-20); Calcium 7.9 mg/dL (8.4-10.2); Carbon Dioxide 21 mmol/L (22-30); Chloride 102.5 mmol/L (98-107); Glucose 232 mg/dL (75-100); Potassium 3.8 mmol/L (3.6-5.0); Sodium 138 mmol/L (137-145)
[2016-10-05 14:19] LABS: Anion Gap 16 mmol/L; BUN/Creatinine Ratio 14.44; Blood Urea Nitrogen 13 mg/dL (9-20); Calcium 7.7 mg/dL (8.4-10.2); Carbon Dioxide 23 mmol/L (22-30); Chloride 101.8 mmol/L (98-107); Glucose 231 mg/dL (75-100); Potassium 3.7 mmol/L (3.6-5.0); Sodium 137 mmol/L (137-145)
--- NOTE | 2016-10-05 17:18 | Event Note ---
Date: 10/05/16 Patient 31-year-old with no illicit diabetes presented in DKA. Patient symptomatic with polyuria polydipsia abdominal pain and recurrent infections. Patient is brought in placed on insulin drip. Blood sugars gone down from [phone] currently patient asymptomatic hungry gap has closed no longer acidotic will change patient to long-acting insulin DC insulin drip and cover with sliding-scale in preparation to be discharged. We'll also obtain diabetic teaching.
[2016-10-05 22:13] LABS: Anion Gap 18 mmol/L; BUN/Creatinine Ratio 13.33; Blood Urea Nitrogen 12 mg/dL (9-20); Carbon Dioxide 24 mmol/L (22-30); Chloride 97.7 mmol/L (98-107); Glucose 289 mg/dL (75-100); Potassium 4.4 mmol/L (3.6-5.0); Sodium 135 mmol/L (137-145)
[2016-10-05] MEDS: NOVOLOG SUB-Q SCH (22:58)
[2016-10-06] MEDS: HEPARIN SUB-Q SCH ×3 (06:20→22:51)
[2016-10-06 06:42] LABS: Anion Gap 16 mmol/L; Blood Urea Nitrogen 10 mg/dL (9-20); Calcium 8.2 mg/dL (8.4-10.2); Carbon Dioxide 25 mmol/L (22-30); Chloride 96.7 mmol/L (98-107); Glucose 274 mg/dL (75-100); Potassium 3.8 mmol/L (3.6-5.0); Sodium 134 mmol/L (137-145)
[2016-10-06] MEDS: NOVOLOG SUB-Q SCH ×4 (08:42→22:52)
[2016-10-06 10:11] LABS: Basophils % (Auto) 1.1 % (0.0-1.8); Eosinophils % (Auto) 4.6 % (0.0-4.3); Hemoglobin 14.6 gm/dl (11.8-15.2); Mean Corpuscular HGB Conc 33 % (32-34); Mean Corpuscular Hemoglobin 27 pg (28-32); Mean Corpuscular Volume 82 fl (84-94); Platelet Count 139 K/mm3 (140-440); Red Blood Count 5.38 M/mm3 (3.65-5.03); Red Cell Distribution Width 13.5 % (13.2-15.2); White Blood Count 4.1 K/mm3 (4.5-11.0)
[2016-10-06 10:39] LABS: Anion Gap 19 mmol/L; BUN/Creatinine Ratio 11.11; Blood Urea Nitrogen 10 mg/dL (9-20); Calcium 8.6 mg/dL (8.4-10.2); Carbon Dioxide 23 mmol/L (22-30); Chloride 96.7 mmol/L (98-107); Glucose 329 mg/dL (75-100); Potassium 4.1 mmol/L (3.6-5.0); Sodium 135 mmol/L (137-145)
--- NOTE | 2016-10-06 11:59 | Progress Note ---
Assessment and Plan Assessment and plan: 31M with newly diagnosed type 2 diabetes who presented to the hospital in DKA DKA * improved, still hyperglycemic, increase insulin dose * transfer to medical floor if he continues to improve * Diabetic diet * Trolley Car Mechanic consult * counseled on improved compliance * case management consult for help with resources to afford insulin since he is self pay * The high probability of a clinically significant, sudden or life threatening deterioration of the [endocrine] system(s) required my full and direct attention , intervention and personal management. The aggregate critical care time was [33 ] minutes. This time is in addition to time spent performing reported procedures but includes the following: [] Data Review and interpretation [] Patient assessment and monitoring of vital signs [] Documentation [] Medication orders and management History Interval history: He denies polydipsia or polyuria present, he feels fine. She is a RN noted that he still having episodes of hypoglycemia Hospitalist Physical - Physical exam Narrative exam: General: Patient appears well in no distress HEENT: MMM, EOMI cardiac: S1-S2 heard lungs: clear to auscultation, abdomen: soft, nontender, nondistended bowel sounds positive extremities: no edema clubbing or cyanosis Skin: no rash or lesion Neuro: no focal deficit Psych: appropriate behavior and mood, cognition intact - Constitutional Vitals: Temp Pulse Resp BP Pulse Ox 98.4 F 75 15 133/67 100 10/06/16 08:00 10/06/16 11:01 10/06/16 11:01 10/06/16 11:01 10/06/16 11:01 General appearance: Present: no acute distress Results - Labs CBC & Chem 7: 10/06/16 09:13 10/06/16 09:13 Labs: Laboratory Last Values WBC 4.1 K/mm3 (4.5-11.0) L 10/06/16 09:13 RBC 5.38 M/mm3 (3.65-5.03) H 10/06/16 09:13 Hgb 14.6 gm/dl (11.8-15.2) 10/06/16 09:13 Hct 44.0 % (35.5-45.6) 10/06/16 09:13 MCV 82 fl (84-94) L 10/06/16 09:13 MCH 27 pg (28-32) L 10/06/16 09:13 MCHC 33 % (32-34) 10/06/16 09:13 RDW 13.5 % (13.2-15.2) 10/06/16 09:13 Plt Count 139 K/mm3 (140-440) L 10/06/16 09:13 Lymph % (Auto) 40.0 % (13.4-35.0) H 10/06/16 09:13 Davison % (Auto) 5.0 % (0.0-7.3) 10/06/16 09:13 Eos % (Auto) 4.6 % (0.0-4.3) H 10/06/16 09:13 Baso % (Auto) 1.1 % (0.0-1.8) 10/06/16 09:13 Lymph # 1.6 K/mm3 (1.2-5.4) 10/06/16 09:13 Davison # 0.2 K/mm3 (0.0-0.8) 10/06/16 09:13 Eos # 0.2 K/mm3 (0.0-0.4) 10/06/16 09:13 Baso # 0.0 K/mm3 (0.0-0.1) 10/06/16 09:13 Seg Neutrophils % 49.3 % (40.0-70.0) 10/06/16 09:13 Seg Neutrophils # 2.0 K/mm3 (1.8-7.7) 10/06/16 09:13 VBG pH 7.358 (7.320-7.420) 10/05/16 04:15 Sodium 135 mmol/L (137-145) L 10/06/16 09:13 Potassium 4.1 mmol/L (3.6-5.0) 10/06/16 09:13 Chloride 96.7 mmol/L (98-107) L 10/06/16 09:13 Carbon Dioxide 23 mmol/L (22-30) 10/06/16 09:13 Anion Gap 19 mmol/L 10/06/16 09:13 BUN 10 mg/dL (9-20) 10/06/16 09:13 Creatinine 0.9 mg/dL (0.8-1.5) 10/06/16 09:13 Estimated GFR > 60 ml/min 10/06/16 09:13 BUN/Creatinine Ratio 11.11 % 10/06/16 09:13 Glucose 329 mg/dL (75-100) H 10/06/16 09:13 POC Glucose 256 (70-105) H 10/06/16 07:12 Hemoglobin A1c 12.1 % (4-6) H 10/06/16 09:13 Calcium 8.6 mg/dL (8.4-10.2) 10/06/16 09:13 Phosphorus 2.80 mg/dL (2.5-4.5) 10/05/16 05:43 Magnesium 2.10 mg/dL (1.7-2.3) 10/05/16 05:43 Total Bilirubin 0.30 mg/dL (0.1-1.2) 10/05/16 00:39 AST 39 units/L (5-40) 10/05/16 00:39 ALT 42 units/L (7-56) 10/05/16 00:39 Alkaline Phosphatase 94 units/L (35-129) 10/05/16 00:39 Total Protein 8.4 g/dL (6.3-8.2) H 10/05/16 00:39 Albumin 4.0 g/dL (3.9-5) 10/05/16 00:39 Albumin/Globulin Ratio 0.9 % 10/05/16 00:39 Lipase 49 units/L (13-60) 10/05/16 00:39 Urine Color Straw (Yellow) 10/05/16 Unknown Urine Turbidity Clear (Clear) 10/05/16 Unknown Urine pH 5.0 (5.0-7.0) 10/05/16 Unknown Ur Specific Berkley 1.029 (1.003-1.030) 10/05/16 Unknown Urine Protein <15 mg/dl mg/dL (Negative) 10/05/16 Unknown Urine Glucose (UA) >=500 mg/dL (Negative) 10/05/16 Unknown Urine Ketones 20 mg/dL (Negative) 10/05/16 Unknown Urine Blood Mod (Negative) 10/05/16 Unknown Urine Nitrite Neg (Negative) 10/05/16 Unknown Urine Bilirubin Neg (Negative) 10/05/16 Unknown Urine Urobilinogen < 2.0 mg/dL (<2.0) 10/05/16 Unknown Ur Leukocyte Esterase Neg (Negative) 10/05/16 Unknown Urine WBC (Auto) 1.0 /HPF (0.0-6.0) 10/05/16 Unknown Urine RBC (Auto) 1.0 /HPF (0.0-6.0) 10/05/16 Unknown U Epithel Cells (Auto) < 1.0 /HPF (0-13.0) 10/05/16 Unknown Urine Mucus Few /HPF 10/05/16 Unknown
--- NOTE | 2016-10-06 14:28 | Event Note ---
Date: 10/06/16 Patient much improved. No acute overnight events. Vitals, labs, medications, chart reviewed. Clinically stable for transfer to floor with weight based insulin therapy. Diabetic education
--- NOTE | 2016-10-06 14:50 | Progress Note ---
Assessment and Plan - Patient Problems (1) DKA (diabetic ketoacidoses) Current Visit: Yes Status: Acute Qualifiers: Diabetes mellitus type: D Diabetes mellitus complication detail: D Plan to address problem: Continue with DKA management per protocol Diabetic education Stable to transfer out of the ICU (2) Diabetes mellitus, new onset Current Visit: Yes Status: Acute Plan to address problem: Follow up HBA1C, fasting lipids, TSH results Diabetic education (3) Obesities, morbid Current Visit: Yes Status: Acute Plan to address problem: Lifestyle modifications, diet and exercise counselling Subjective Date of service: 10/06/16 Interval history: Much improved. Closed gap, tolerating orally. Diabetic education done. Seen and examined. Vitals, labs, medications, chart reviewed Objective - Exam Narrative Exam: General: Patient appears well in no distress HEENT: MMM, EOMI cardiac: S1-S2 heard lungs: clear to auscultation, abdomen: soft, nontender, nondistended bowel sounds positive extremities: no edema clubbing or cyanosis Skin: no rash or lesion Neuro: no focal deficit Psych: appropriate behavior and mood, cognition intact Vital Signs - 12hr 10/06/16 10/06/16 10/06/16 02:51 03:01 03:11 Temperature Pulse Rate 83 78 88 Respiratory 16 17 15 Rate Blood Pressure 140/78 118/71 118/71 O2 Sat by Pulse 92 92 97 Oximetry 10/06/16 10/06/16 10/06/16 03:21 03:31 03:41 Temperature Pulse Rate 64 74 74 Respiratory 12 16 16 Rate Blood Pressure 118/71 118/71 118/71 O2 Sat by Pulse 97 96 95 Oximetry 10/06/16 10/06/16 10/06/16 03:51 04:00 04:01 Temperature 98.5 F Pulse Rate 60 84 Respiratory 20 19 12 Rate Blood Pressure 118/71 118/71 O2 Sat by Pulse 99 99 Oximetry 10/06/16 10/06/16 10/06/16 04:11 04:21 04:31 Temperature Pulse Rate 75 73 62 Respiratory 13 16 18 Rate Blood Pressure 118/71 118/71 129/64 O2 Sat by Pulse 96 97 94 Oximetry 10/06/16 10/06/16 10/06/16 04:41 04:51 05:01 Temperature Pulse Rate 81 72 75 Respiratory 16 13 15 Rate Blood Pressure 129/64 129/64 111/68 O2 Sat by Pulse 96 93 91 Oximetry 10/06/16 10/06/16 10/06/16 05:11 05:21 05:31 Temperature Pulse Rate 79 65 74 Respiratory 16 18 15 Rate Blood Pressure 111/68 111/68 133/67 O2 Sat by Pulse 95 97 93 Oximetry 10/06/16 10/06/16 10/06/16 05:41 05:51 06:01 Temperature Pulse Rate 81 70 74 Respiratory 14 14 14 Rate Blood Pressure 133/67 133/67 133/67 O2 Sat by Pulse 98 96 96 Oximetry 10/06/16 10/06/16 10/06/16 06:11 06:21 06:31 Temperature Pulse Rate 63 59 L 67 Respiratory 13 15 15 Rate Blood Pressure 133/67 133/67 133/67 O2 Sat by Pulse 97 98 96 Oximetry 10/06/16 10/06/16 10/06/16 06:41 06:51 07:01 Temperature Pulse Rate 66 74 80 Respiratory 15 15 16 Rate Blood Pressure 133/67 133/67 133/67 O2 Sat by Pulse 93 91 98 Oximetry 10/06/16 10/06/16 10/06/16 07:11 07:21 07:31 Temperature Pulse Rate 65 70 65 Respiratory 11 L 13 15 Rate Blood Pressure 133/67 133/67 133/67 O2 Sat by Pulse 98 98 96 Oximetry 10/06/16 10/06/16 10/06/16 07:41 07:51 08:00 Temperature 98.4 F Pulse Rate 72 70 Respiratory 15 12 Rate Blood Pressure 133/67 133/67 O2 Sat by Pulse 97 96 Oximetry 10/06/16 10/06/16 10/06/16 08:01 08:11 08:21 Temperature Pulse Rate 75 70 61 Respiratory 14 6 L 11 L Rate Blood Pressure 133/67 133/67 133/67 O2 Sat by Pulse 98 96 95 Oximetry 10/06/16 10/06/16 10/06/16 08:31 08:41 08:51 Temperature Pulse Rate 79 82 83 Respiratory 10 L 11 L 12 Rate Blood Pressure 133/67 133/67 133/67 O2 Sat by Pulse 97 97 96 Oximetry 10/06/16 10/06/16 10/06/16 09:01 09:11 09:21 Temperature Pulse Rate 79 81 82 Respiratory 12 14 16 Rate Blood Pressure 133/67 133/67 133/67 O2 Sat by Pulse 98 96 95 Oximetry 10/06/16 10/06/16 10/06/16 09:31 09:41 09:51 Temperature Pulse Rate 79 71 74 Respiratory 12 16 17 Rate Blood Pressure 133/67 133/67 133/67 O2 Sat by Pulse 93 93 Oximetry 10/06/16 10/06/16 10/06/16 10:00 10:01 10:11 Temperature Pulse Rate 75 97 H Respiratory 18 15 Rate Blood Pressure 133/67 133/67 O2 Sat by Pulse 96 97 89 Oximetry 10/06/16 10/06/16 10/06/16 10:21 10:31 10:41 Temperature Pulse Rate 88 57 L 64 Respiratory 15 15 15 Rate Blood Pressure 133/67 133/67 133/67 O2 Sat by Pulse 87 96 99 Oximetry 10/06/16 10/06/16 10/06/16 10:51 11:01 11:11 Temperature Pulse Rate 68 75 88 Respiratory 16 15 14 Rate Blood Pressure 133/67 133/67 155/90 O2 Sat by Pulse 97 100 99 Oximetry 10/06/16 10/06/16 10/06/16 11:21 11:30 11:41 Temperature Pulse Rate 96 H 79 88 Respiratory 20 13 15 Rate Blood Pressure 155/90 155/90 155/90 O2 Sat by Pulse 97 97 98 Oximetry 10/06/16 10/06/16 10/06/16 11:51 12:00 12:11 Temperature 98 F Pulse Rate 71 85 82 Respiratory 12 12 9 L Rate Blood Pressure 155/90 114/78 114/78 O2 Sat by Pulse 98 90 96 Oximetry 10/06/16 10/06/16 10/06/16 12:21 12:31 12:41 Temperature Pulse Rate 59 L 69 77 Respiratory 15 17 15 Rate Blood Pressure 114/78 114/78 114/78 O2 Sat by Pulse 84 95 91 Oximetry 10/06/16 10/06/16 10/06/16 12:51 13:01 13:11 Temperature Pulse Rate 80 92 H 100 H Respiratory 16 12 16 Rate Blood Pressure 114/78 132/78 132/78 O2 Sat by Pulse 97 95 96 Oximetry 10/06/16 10/06/16 10/06/16 13:21 13:31 13:41 Temperature Pulse Rate 92 H 89 97 H Respiratory 22 13 16 Rate Blood Pressure 132/78 146/68 146/68 O2 Sat by Pulse 97 94 95 Oximetry 10/06/16 10/06/16 10/06/16 13:51 14:01 14:11 Temperature Pulse Rate 110 H 90 76 Respiratory 21 18 17 Rate Blood Pressure 146/68 135/62 135/62 O2 Sat by Pulse 97 94 96 Oximetry Constitutional: no acute distress, other (obese) Eyes: non-icteric ENT: oropharynx dry Neck: supple, no lymphadenopathy, no JVD Effort: mildly labored Ascultation: Bilateral: clear, diminished breath sounds Cardiovascular: regular rate and rhythm Gastrointestinal: normoactive bowel sounds, soft, non-tender, non-distended Integumentary: normal Extremities: no cyanosis, no edema, pink and warm, pulses normal, no ischemia or petechiae Neurologic: normal mental status, non-focal exam, pupils equal and round, CN II- XII normal, motor strength normal and Psychiatric: mood appropriate, affect normal CBC and BMP: 10/06/16 09:13 10/06/16 09:13 Abnormal lab findings: Abnormal Labs 10/05/16 10/05/16 10/05/16 05:06 05:43 06:01 WBC RBC MCV MCH Plt Count Lymph % (Auto) Eos % (Auto) Sodium 131 L Chloride 93.5 L Carbon Dioxide 21 L Glucose 479 H POC Glucose 440 H 456 H Hemoglobin A1c Calcium 8.0 L 10/05/16 10/05/16 10/05/16 06:49 07:24 07:50 WBC RBC MCV MCH Plt Count Lymph % (Auto) Eos % (Auto) Sodium 136 L Chloride Carbon Dioxide Glucose 369 H POC Glucose 353 H 296 H Hemoglobin A1c Calcium 8.0 L 10/05/16 10/05/16 10/05/16 09:09 09:16 10:24 WBC RBC MCV MCH Plt Count Lymph % (Auto) Eos % (Auto) Sodium Chloride Carbon Dioxide Glucose 291 H POC Glucose 272 H 245 H Hemoglobin A1c Calcium 7.9 L 10/05/16 10/05/16 10/05/16 11:07 11:12 12:18 WBC RBC MCV MCH Plt Count Lymph % (Auto) Eos % (Auto) Sodium Chloride Carbon Dioxide 21 L Glucose 232 H POC Glucose 226 H 257 H Hemoglobin A1c Calcium 7.9 L 10/05/16 10/05/16 10/05/16 12:58 13:37 15:25 WBC RBC MCV MCH Plt Count Lymph % (Auto) Eos % (Auto) Sodium Chloride Carbon Dioxide Glucose 231 H POC Glucose 251 H 205 H Hemoglobin A1c Calcium 7.7 L 10/05/16 10/05/16 10/05/16 16:22 17:18 21:30 WBC RBC MCV MCH Plt Count Lymph % (Auto) Eos % (Auto) Sodium 135 L Chloride 97.7 L Carbon Dioxide Glucose 289 H POC Glucose 223 H 217 H Hemoglobin A1c Calcium 8.0 L 10/05/16 10/06/16 10/06/16 21:30 05:48 07:12 WBC RBC MCV MCH Plt Count Lymph % (Auto) Eos % (Auto) Sodium 134 L Chloride 96.7 L Carbon Dioxide Glucose 274 H POC Glucose 293 H 256 H Hemoglobin A1c Calcium 8.2 L 10/06/16 10/06/16 10/06/16 09:13 09:13 09:13 WBC 4.1 L RBC 5.38 H MCV 82 L MCH 27 L Plt Count 139 L Lymph % (Auto) 40.0 H Eos % (Auto) 4.6 H Sodium 135 L Chloride 96.7 L Carbon Dioxide Glucose 329 H POC Glucose Hemoglobin A1c 12.1 H Calcium 10/06/16 11:17 WBC RBC MCV MCH Plt Count Lymph % (Auto) Eos % (Auto) Sodium Chloride Carbon Dioxide Glucose POC Glucose 342 H Hemoglobin A1c Calcium
[2016-10-07] MEDS: HEPARIN SUB-Q SCH (05:56)
[2016-10-07] MEDS: NOVOLOG SUB-Q SCH (07:30)
[2016-10-07 07:43] VITALS: BP 141/71
--- NOTE | 2016-10-07 08:37 | Discharge Summary ---
Providers - Providers Date of Admission: 10/05/16 04:55 Attending physician: HERRERA SILVA MD 10/05/16 06:01 Consult to Physician [CONS] Routine Consulting Provider: JULIANA ENGLAND Reason For Exam: icu admission Place consult to:: Luz Elena Notified:: yes 10/06/16 03:14 Consult to Case Management [CONS] Urgent Services Needed at Discharge: Other Showroom Salesperson Notified:: Please call case management in am. Additional Physician Instructions: Patient has new onset diabetes mellitus, no health insurance to purchase medications upon discharge, needs glucose monitor machine with extensive diabetic instruction on life style changes to include diet. 10/06/16 09:00 Consult to Dietitian/Nutrition [CONS] Routine Physician Instructions: Reason For Exam: New onset insulin dependent diabetes Reason for Consult: Diet education Primary care physician: AIRCRAFT CYLINDER MECHANIC Hospitalization Condition: Stable Hospital course: 31M with newly diagnosed type 2 diabetes who presented to the hospital in DKA. He was treated with IV fluids, insulin drip. He was then transitioned to subcutaneous insulin, he received diabetic education, he was seen in conjunction with case management to able to provide an resources for medications and insulin as he does not have insurance. Patient clinically improved, he will also noted to have Alda rash of his groin for which she was given miconazole powder. Discharge diagnoses DKA Uncontrolled diabetes type 2 Lada infection/jock itch Disposition: DC-01 TO HOME OR SELFCARE Time spent for discharge: 33 minutes Core Measure Documentation - Palliative Care Palliative Care/ Comfort Measures: Not Applicable - Core Measures Any of the following diagnoses?: none Exam - Constitutional Vitals: Temp Pulse Resp BP Pulse Ox 97.1 F L 73 20 141/71 96 10/07/16 07:43 10/07/16 07:43 10/07/16 07:43 10/07/16 07:43 10/07/16 07:43 General appearance: Present: no acute distress, well-nourished - EENT Eyes: Present: PERRL ENT: hearing intact, clear oral mucosa - Neck Neck: Present: supple, normal ROM - Respiratory Respiratory effort: normal Respiratory: bilateral: CTA - Cardiovascular Heart Sounds: Present: S1 & S2. Absent: rub, click - Extremities Extremities: pulses symmetrical, No edema Peripheral Pulses: within normal limits - Abdominal General gastrointestinal: Present: soft, non-tender, non-distended, normal bowel sounds Male genitourinary: Present: normal - Integumentary Integumentary: Present: clear, warm, dry - Musculoskeletal Musculoskeletal: gait normal, strength equal bilaterally - Psychiatric Psychiatric: appropriate mood/affect, intact judgment & insight - Neurologic Neurologic: CNII-XII intact, moves all extremities Plan Follow up with: PRIMARY CARE, [Primary Care Provider] - 3-5 Days Prescriptions: glipiZIDE [Glucotrol] 10 mg PO BID #60 tab Insulin NPH/Regular [NovoLIN 70/30] 25 unit SUB-Q BIDDIAB #1 vial Metformin HCl [Glucophage] 1,000 mg PO BID #60 tablet Miconazole Nitrate [Athlete's Foot] 71 gm TP BID #3 oz Other Discharge Orders: Glucometer (Amb) Location: Determined By Patient Glucometer supplies[Amb] Location: Determined By Patient
== END 2016-10-07 12:24 | disposition home or self-care (01) | DRG 638 ==
LOC: ED 23:24 → CC1 10-05 04:55 → 3A 10-06 15:50
PROVIDERS: ADMIT Internal Medicine; ATTEND Internal Medicine
DX: E13.10 Other specified diabetes mellitus with ketoacidosis without coma (principal); Z68.41 Body mass index [BMI] 40.0-44.9, adult; E66.01 Morbid (severe) obesity due to excess calories; I10 Essential (primary) hypertension; J45.909 Unspecified asthma, uncomplicated; F17.210 Nicotine dependence, cigarettes, uncomplicated; E13.65 Other specified diabetes mellitus with hyperglycemia; B35.6 Tinea cruris; F12.90 Cannabis use, unspecified, uncomplicated; Z71.89 Other specified counseling; Z71.3 Dietary counseling and surveillance; Z83.3 Family history of diabetes mellitus
CPT/HCPCS: 36415; 80048; 80053; 81001; 82805; 82962; 83036; 83690; 83735; 84100; 85025; 93005; 93010; 94760; 96361; 96374; J1644; J1815; J7030

== ENCOUNTER 2018-08-23 11:27 | Emergency (ER) | payer OTHER ==
--- NOTE | 2018-08-23 11:32 | Emergency Department Report ---
Blank Doc - Documentation Documentation: This is a 33-year-old male that presents with cough and right flank pain. Pat ient stated right flank pain hurts when coughing. Denies any other complaints. This initial assessment/diagnostic orders/clinical plan/treatment(s) is/are subject to change based on patient's health status, clinical progression and re- assessment by fellow clinical providers in the ED. Further treatment and workup at subsequent clinical providers discretion. Patient/guardians urged not to elope from the ED as their condition may be serious if not clinically assessed and managed. Initial orders include: 1- Patient sent to [facility] for further evaluation and treatment 2- CXR 3- UA
[2018-08-23 12:05] LABS: Bilirubin,Urine NEG (Negative); Blood,Urine NEG (Negative); Color,Urine Yellow (Yellow); Mucus,Urine FEW /HPF; Protein,Urine <15 mg/dL mg/dL (Negative)
[2018-08-23] MEDS ORDERED: DELTASONE PO ONE (12:10)
[2018-08-23] MEDS ORDERED: PROVENTIL IH ONE (12:11)
[2018-08-23] MEDS ORDERED: TESSALON PERLES PO ONE (12:11)
[2018-08-23] MEDS ORDERED: ATROVENT IH ONE (12:11)
--- NOTE | 2018-08-23 12:27 | Emergency Department Report ---
HPI - General Chief Complaint: Abdominal Pain Time Seen by Provider: 08/23/18 11:32 - HPI HPI: 33-year-old male presents to the emergency department with a three-day history of a mixed dry and productive cough, shortness of breath. He has a history of diabetes that is on both pills and insulin and says that he has been well-controlled. He also has a history of asthma and he had seizures as a child. He is occasionally tried one of his inhalers at home without much relief. He denies any chest pain, fever, diaphoresis, chills. The patient also complains of some right upper quadrant abdominal and flank pain that he says mostly occurs when he is coughing. He denies any nausea, vomiting, dysuria. No recent travel or sick contacts at home. He does not have a primary care physician. He denies any tobacco or illicit drug use. ED Past Medical Hx - Past Medical History Previous Medical History?: Yes Hx Congestive Heart Failure: No Hx Diabetes: Yes (new onset DM) Hx Seizures: Yes Hx Asthma: Yes Hx COPD: No - Social History Smoking Status: Former Smoker Substance Use Type: Alcohol - Medications Home Medications: Home Medications Medication Instructions Recorded Confirmed Last Taken Type Insulin NPH/Regular [NovoLIN 70/30] 25 unit SUB-Q BIDDIAB #1 vial 10/07/16 Unknown Rx Metformin HCl [Glucophage] 1,000 mg PO BID #60 tablet 10/07/16 Unknown Rx Miconazole Nitrate [Athlete's Foot] 71 gm TP BID #3 oz 10/07/16 Unknown Rx glipiZIDE [Glucotrol] 10 mg PO BID #60 tab 10/07/16 Unknown Rx ALBUTEROL Inhaler (OR & NICU) 2 puff IH QID PRN #1 inhalation 08/23/18 Unknown Rx [ProAir HFA Inhaler] Benzonatate [Tessalon Perles] 100 mg PO Q8HR PRN #20 capsule 08/23/18 Unknown Rx guaiFENesin/CODEINE [Robitussin AC] 5 ml PO Q6H PRN #100 oral.liqd 08/23/18 Unknown Rx predniSONE [Deltasone] 20 mg PO BID #6 tab 08/23/18 Unknown Rx ED Review of Systems ROS: Stated complaint: CHEST PAIN Other details as noted in HPI Constitutional: denies: chills, fever Eyes: denies: eye pain, vision change ENT: denies: ear pain, throat pain Respiratory: cough, shortness of breath, wheezing Cardiovascular: denies: chest pain, palpitations Gastrointestinal: abdominal pain. denies: nausea, vomiting Genitourinary: denies: dysuria, discharge Musculoskeletal: denies: back pain, arthralgia Skin: denies: rash, lesions Neurological: denies: headache, weakness Physical Exam - Physical Exam Vital Signs: Vital Signs 08/23/18 11:31 Temperature 98.1 F Pulse Rate 76 Respiratory 20 Rate Blood Pressure 139/93 O2 Sat by Pulse 99 Oximetry Physical Exam: GENERAL: The patient is well-developed well-nourished. HENT: Normocephalic. Atraumatic. Patient has moist mucous membranes. EYES: Extraocular motions are intact. Pupils equal reactive to light bilaterally. NECK: Supple. Trachea is midline. CHEST/LUNGS: Mild wheezing throughout the chest. No tachypnea or accessory muscle use. The patient has a bronchospastic cough with some coughing fits. There is no respiratory distress noted. HEART/CARDIOVASCULAR: Regular. There is no tachycardia. There is no murmur. ABDOMEN: Abdomen is soft, nontender. Patient has normal bowel sounds. Obese habitus. SKIN: Skin is warm and dry. NEURO: The patient is awake, alert, and oriented. The patient is cooperative. The patient has no focal neurologic deficits. The patient has normal speech. MUSCULOSKELETAL: There is no tenderness or deformity. There is no limitation range of motion. There is no evidence of acute injury. ED Course Vital Signs 08/23/18 11:31 Temperature 98.1 F Pulse Rate 76 Respiratory 20 Rate Blood Pressure 139/93 O2 Sat by Pulse 99 Oximetry ED Medical Decision Making - Lab Data Result diagrams: 08/23/18 12:47 08/23/18 12:47 - Radiology Data Radiology results: image reviewed interpreted by me: Chest x-ray does not show any acute process. There are no pleural effusions, obvious pneumonia and there is no pneumothorax. Abdominal x-ray shows nonspecific nonobstructive bowel gas - Medical Decision Making Patient presents to the emergency department with a complaint of a cough and some shortness of breath. He also said that he had some right abdominal and flank pain that occurs when he is coughing. He is not tender to palpation and t his appears most consistent with some musculoskeletal pain secondary to his coughing fits. He does have a bronchospastic cough with some coughing fits but does not appear to be in any respiratory distress. He was given some steroids and breathing treatment and upon reevaluation he is feeling improved. Chest x- ray did not show any pneumonia, pleural effusions, pneumothorax, focal consolidation, or any other acute process. Abdominal x-ray shows nonspecific nonobstructive bowel gas. The patient will be discharged home with an inhaler, steroids and Robitussin-AC. We discussed the importance of checking his blood sugar and making sure to take his diabetes medications secondary to the hypogl ycemic effect of steroids. His vital signs stable throughout his ED course including being afebrile and no hypoxia. He will return to the emergency Department with any worsening of his symptoms or any acute distress. - Differential Diagnosis asthma, bronchitis, pneumonia, URI Critical Care Time: No Critical care attestation.: If time is entered above; I have spent that time in minutes in the direct care of this critically ill patient, excluding procedure time. ED Disposition Clinical Impression: Bronchitis Asthma Qualifiers: Asthma severity: unspecified severity Asthma persistence: unspecified Asthma complication type: with acute exacerbation Qualified Code(s): J45.901 - Unspecified asthma with (acute) exacerbation Disposition: DC-01 TO HOME OR SELFCARE Is pt being admited?: No Condition: Stable Instructions: Asthma (ED), Acute Bronchitis (ED) Additional Instructions: Please follow up with a primary care physician. Return to the emergency Department with any worsening of your symptoms or any acute distress. Take the medications as prescribed. Continue checking your blood sugar daily. You have been prescribed a medication that is sedating and therefore should not be taken prior to driving, working, and responsible for children and in no way should be mixed with alcohol of any quantity. Prescriptions: predniSONE [Deltasone] 20 mg PO BID #6 tab ALBUTEROL Inhaler (OR & NICU) [ProAir HFA Inhaler] 2 puff IH QID PRN #1 inhalation PRN Reason: Shortness Of Breath guaiFENesin/CODEINE [Robitussin AC] 5 ml PO Q6H PRN #100 oral.liqd PRN Reason: Cough Benzonatate [Tessalon Perles] 100 mg PO Q8HR PRN #20 capsule PRN Reason: Cough Referrals: CLAU HERRERA MD [Staff Physician] - 2-3 Days [facility] [Outside] - 2-3 Days Time of Disposition: 13:59
--- NOTE | 2018-08-23 12:31 | XRay Report ---
ROUTINE CHEST, TWO VIEWS: HISTORY: Cough. The trachea, heart, mediastinal contour, lung richard and bony thorax are unremarkable. IMPRESSION: Unremarkable chest x-ray.
--- NOTE | 2018-08-23 12:50 | XRay Report ---
ABDOMEN, 2 views: History: Cough, abdominal pain. There is a large amount of stool throughout the length of the colon. No evidence for dilated bowel, large air-fluid levels or free air. No pathologic calcifications are identified. The lung bases appear well-aerated. IMPRESSION: Constipation.
[2018-08-23 13:05] LABS: Basophils % (Auto) 0.9 % (0.0-1.8); Eosinophils # (Auto) 0.3 K/mm3 (0.0-0.4); Eosinophils % (Auto) 6.2 % (0.0-4.3); Hematocrit 43.9 % (35.5-45.6); Hemoglobin 14.8 gm/dl (11.8-15.2); Lymphocytes # (Auto) 1.7 K/mm3 (1.2-5.4); Lymphocytes % (Auto) 34.7 % (13.4-35.0); Mean Corpuscular HGB Conc 34 % (32-34); Mean Corpuscular Volume 84 fl (84-94); Monocytes # (Auto) 0.4 K/mm3 (0.0-0.8); Monocytes % (Auto) 8.7 % (0.0-7.3); Platelet Count 166 K/mm3 (140-440); Red Blood Count 5.22 M/mm3 (3.65-5.03); Red Cell Distribution Width 13.8 % (13.2-15.2)
[2018-08-23 13:31] LABS: Alanine Aminotransferase 21 units/L (7-56); Albumin 3.9 g/dL (3.9-5); BUN/Creatinine Ratio 8; Blood Urea Nitrogen 10 mg/dL (9-20); Calcium 8.4 mg/dL (8.4-10.2); Hemolysis Index 14
[2018-08-23 13:32] VITALS: BP 133/69
== END 2018-08-23 14:08 | disposition home or self-care (01) ==
LOC: ED 11:27
DX: J45.909 Unspecified asthma, uncomplicated (principal); E11.9 Type 2 diabetes mellitus without complications; Z87.891 Personal history of nicotine dependence; Z79.4 Long term (current) use of insulin
CPT/HCPCS: 36415; 71046; 74019; 80053; 81001; 82962; 83690; 85025; 94640; 99284; J7512

== ENCOUNTER 2018-09-16 08:27 | Inpatient (IN) | payer SELFPAY ==
[2018-09-16 09:53] LABS: Bilirubin,Urine NEG (Negative); Blood,Urine SM (Negative); Color,Urine Yellow (Yellow); Mucus,Urine FEW /HPF; Protein,Urine <15 mg/dL mg/dL (Negative)
--- NOTE | 2018-09-16 10:25 | Ultrasound Report ---
PROCEDURE: US TESTICULAR DOPPLER COMP TECHNIQUE: HISTORY: left testicular pain COMPARISONS: FINDINGS: Real-time ultrasound of the scrotum was performed. The right testicle measures 5.3 x 2.4 x 3.2 cm. There is no evidence of testicular mass or testicular torsion. The right epididymis measures 1.1 x 0.9 x 1.2 cm. There is a right epididymal cyst 0.4 x 0. 5 cm. There is a hypoechoic noncystic region in the epididymal body which could represent epididymal mass. This does not appear hypervascular and is therefore thought unlikely to represent epididymitis. The left testicle measures 5.5 x 2.2 x 2.8 cm. There is a lower pole thinly septated testicular cyst, 1.1 x 0.6 x 0.9 cm. The left epididymal head measures 1.2 x 1.2 x 1.2 cm. IMPRESSION: No evidence of testicular torsion Septated left testicular cyst Hypoechoic lesion in the right epididymal body which does not appear to represent cysts. It could rep resent a solid epididymal lesion This document is electronically signed by Noah Mcdonough MD., September 16 2018 10:24:00 AM ET
[2018-09-16 10:52] LABS: Basophils # (Auto) 0.1 K/mm3 (0.0-0.1); Basophils % (Auto) 0.5 % (0.0-1.8); Eosinophils # (Auto) 0.1 K/mm3 (0.0-0.4); Eosinophils % (Auto) 1.5 % (0.0-4.3); Hematocrit 40.2 % (35.5-45.6); Hemoglobin 13.7 gm/dl (11.8-15.2); Lymphocytes # (Auto) 1.7 K/mm3 (1.2-5.4); Lymphocytes % (Auto) 16.6 % (13.4-35.0); Mean Corpuscular HGB Conc 34 % (32-34); Mean Corpuscular Volume 83 fl (84-94); Monocytes # (Auto) 0.6 K/mm3 (0.0-0.8); Monocytes % (Auto) 5.6 % (0.0-7.3); Platelet Count 149 K/mm3 (140-440); Red Blood Count 4.83 M/mm3 (3.65-5.03); Red Cell Distribution Width 13.8 % (13.2-15.2)
--- NOTE | 2018-09-16 11:04 | Emergency Department Report ---
ED General Adult HPI - General Chief complaint: Urogenital-Male Stated complaint: TESTICULAR PAIN Time Seen by Provider: 09/16/18 09:32 Source: patient, EMS Mode of arrival: Wheelchair Limitations: No Limitations - History of Present Illness Initial comments: 33 year old diabetic male type 2 insulin-dependent complaints of pain in the left perineal region which is associated with swelling but not drainage. The patient was thought to have testicular pain which he actually does not and was initially screened to have a testicular ultrasound. Testicular ultrasound essentially did not show any significant pathology. On my history the patient's problem was clearly in his perineal area. He states that his sugar has been running a bit high and he has had urinary frequency. However he does not complain of any dysuria. He became worse this morning and he decided to call EMS. He was found to have a blood glucose of 422 per EMS. -: Gradual, week(s) Severity scale (0 -10): 0 Associated Symptoms: denies other symptoms (urinary frequency). denies: confusion, chest pain, cough, diaphoresis, fever/chills, headaches, loss of appetite, malaise, rash, seizure Treatments Prior to Arrival: none - Related Data Previous Rx's Medication Instructions Recorded Last Taken Type Insulin NPH/Regular [NovoLIN 70/30] 25 unit SUB-Q BIDDIAB #1 vial 10/07/16 Unknown Rx Metformin HCl [Glucophage] 1,000 mg PO BID #60 tablet 10/07/16 Unknown Rx Miconazole Nitrate [Athlete's Foot] 71 gm TP BID #3 oz 10/07/16 Unknown Rx glipiZIDE [Glucotrol] 10 mg PO BID #60 tab 10/07/16 Unknown Rx ALBUTEROL Inhaler (OR & NICU) 2 puff IH QID PRN #1 inhalation 08/23/18 Unknown Rx [ProAir HFA Inhaler] Benzonatate [Tessalon Perles] 100 mg PO Q8HR PRN #20 capsule 08/23/18 Unknown Rx guaiFENesin/CODEINE [Robitussin AC] 5 ml PO Q6H PRN #100 oral.liqd 08/23/18 Unknown Rx predniSONE [Deltasone] 20 mg PO BID #6 tab 08/23/18 Unknown Rx Allergies Allergy/AdvReac Type Severity Reaction Status Date / Time No Known Allergies Allergy Verified 09/16/18 08:29 ED Review of Systems ROS: Stated complaint: TESTICULAR PAIN Other details as noted in HPI Constitutional: denies: chills, fever Eyes: denies: eye pain, eye discharge, vision change ENT: denies: ear pain, throat pain Respiratory: denies: cough, shortness of breath, wheezing Cardiovascular: denies: chest pain, palpitations Endocrine: no symptoms reported Gastrointestinal: denies: abdominal pain, nausea, diarrhea Genitourinary: as per HPI, frequency. denies: urgency, dysuria Musculoskeletal: denies: back pain, joint swelling, arthralgia Skin: as per HPI. denies: rash, lesions Neurological: denies: headache, weakness, paresthesias Psychiatric: denies: anxiety, depression Hematological/Lymphatic: denies: easy bleeding, easy bruising ED Past Medical Hx - Past Medical History Hx Congestive Heart Failure: No Hx Diabetes: Yes Hx Seizures: Yes Hx Asthma: Yes Hx COPD: No - Social History Smoking Status: Current Every Day Smoker Substance Use Type: Alcohol, Marijuana - Medications Home Medications: Home Medications Medication Instructions Recorded Confirmed Last Taken Type Insulin NPH/Regular [NovoLIN 70/30] 25 unit SUB-Q BIDDIAB #1 vial 10/07/16 Unknown Rx Metformin HCl [Glucophage] 1,000 mg PO BID #60 tablet 10/07/16 Unknown Rx Miconazole Nitrate [Athlete's Foot] 71 gm TP BID #3 oz 10/07/16 Unknown Rx glipiZIDE [Glucotrol] 10 mg PO BID #60 tab 10/07/16 Unknown Rx ALBUTEROL Inhaler (OR & NICU) 2 puff IH QID PRN #1 inhalation 08/23/18 Unknown Rx [ProAir HFA Inhaler] Benzonatate [Tessalon Perles] 100 mg PO Q8HR PRN #20 capsule 08/23/18 Unknown Rx guaiFENesin/CODEINE [Robitussin AC] 5 ml PO Q6H PRN #100 oral.liqd 08/23/18 Unknown Rx predniSONE [Deltasone] 20 mg PO BID #6 tab 08/23/18 Unknown Rx ED Physical Exam - General Limitations: No Limitations General appearance: alert, in no apparent distress, obese - Head Head exam: Present: atraumatic, normocephalic - Eye Eye exam: Present: normal appearance. Absent: scleral icterus - ENT ENT exam: Present: mucous membranes moist - Neck Neck exam: Present: normal inspection - Respiratory Respiratory exam: Present: normal lung sounds bilaterally. Absent: respiratory distress - Cardiovascular Cardiovascular Exam: Present: regular rate, normal rhythm. Absent: systolic murmur, diastolic murmur, rubs, gallop - GI/Abdominal GI/Abdominal exam: Present: soft, normal bowel sounds. Absent: distended, tenderness, guarding, rebound, rigid - Rectal Rectal exam: Present: deferred - exam: Present: other (patient has a somewhat hyperpigmented but not boggy or fluctuant area of his left perineum. It is indurated. It is perhaps 1 x 4 cm in length. It is not grossly necrotic. The testes appear grossly normal bilaterally and the scrotum is not involved.) - Extremities Exam Extremities exam: Present: normal inspection - Back Exam Back exam: Present: normal inspection. Absent: CVA tenderness (R), CVA tenderness (L) - Neurological Exam Neurological exam: Present: alert, oriented X3, CN II-XII intact. Absent: motor sensory deficit - Psychiatric Psychiatric exam: Present: normal affect, normal mood - Skin Skin exam: Present: warm, dry, intact, normal color. Absent: rash ED Course Vital Signs 09/16/18 09/16/18 09/16/18 08:30 09:08 09:11 Temperature 98 F 98.4 F Pulse Rate 109 H 99 H 104 H Respiratory 20 13 20 Rate Blood Pressure 163/100 Blood Pressure 128/83 [Left] O2 Sat by Pulse 96 95 96 Oximetry 09/16/18 09/16/18 09:12 12:00 Temperature Pulse Rate 92 H Respiratory 19 19 Rate Blood Pressure Blood Pressure 128/84 [Left] O2 Sat by Pulse 96 96 Oximetry - Reevaluation(s) Reevaluation #1: Discussed with Dr. Mercer. Patient will be admitted for intravenous antibiotics and glycemic control. CT abdomen showed no definite abscess nor signs of necrotizing fasciitis. 09/16/18 14:41 ED Medical Decision Making - Lab Data Result diagrams: 09/16/18 10:30 09/16/18 10:30 Laboratory Results - last 24 hr 09/16/18 09/16/18 09:26 10:30 WBC 10.1 RBC 4.83 Hgb 13.7 Hct 40.2 MCV 83 L MCH 28 MCHC 34 RDW 13.8 Plt Count 149 Lymph % (Auto) 16.6 [place] % (Auto) 5.6 Eos % (Auto) 1.5 Baso % (Auto) 0.5 Lymph # 1.7 [place] # 0.6 Eos # 0.1 Baso # 0.1 Seg Neutrophils % 75.8 H Seg Neutrophils # 7.7 Urine Color Yellow Urine Turbidity Clear Urine pH 6.0 Ur Specific [place] 1.035 H Urine Protein <15 mg/dl Urine Glucose (UA) >=500 Urine Ketones 20 Urine Blood Sm Urine Nitrite Neg Urine Bilirubin Neg Urine Urobilinogen 4.0 Ur Leukocyte Esterase Neg Urine WBC (Auto) 1.0 Urine RBC (Auto) 3.0 Urine Mucus Few Critical care attestation.: If time is entered above; I have spent that time in minutes in the direct care of this critically ill patient, excluding procedure time. ED Disposition Clinical Impression: Abscess or cellulitis of perineum Hyperglycemia due to type 2 diabetes mellitus Qualifiers: Diabetes mellitus manager long term care insulin use: with manager long term care use Qualified Code(s): E11.65 - Type 2 diabetes mellitus with hyperglycemia; Z79.4 - terminal make up operator (current) use of insulin Disposition: 09 OP ADMIT IP TO THIS HOSP Is pt being admited?: Yes Does the pt Need Aspirin: Yes Condition: Stable Instructions: Diabetes Mellitus Type 2 in Adults (ED) Referrals: PRIMARY CARE, [Referring] - 3-5 Days Time of Disposition: 14:42
[2018-09-16] MEDS ORDERED: NACL 0.9% 1000 ML 1,000 ML IV ONE (11:05)
[2018-09-16] MEDS ORDERED: ZOSYN/NS 4.5GM/100ML 4.5 GM/100 ML VIAL IV ONE (11:05)
[2018-09-16 11:08] LABS: BUN/Creatinine Ratio 12; Blood Urea Nitrogen 13 mg/dL (9-20); Calcium 8.9 mg/dL (8.4-10.2); Hemolysis Index 4
[2018-09-16 11:55] LABS: INR 1.03 (0.87-1.13)
[2018-09-16 11:56] LABS: Partial Thromboplastin Time 25.1 Sec. (24.2-36.6)
[2018-09-16 12:18] LABS: Alanine Aminotransferase 20 units/L (7-56); Albumin 3.9 g/dL (3.9-5)
[2018-09-16 12:34] LABS: Bilirubin,Direct < 0.2 mg/dL (0-0.2)
--- NOTE | 2018-09-16 14:27 | Cat Scan Report ---
PROCEDURE: CT ABDOMEN PELVIS W CON TECHNIQUE: Computerized axial tomography of the abdomen and pelvis was performed after the administr ation of IV iodinated nonionic contrast. CT DOSE LENGTH PRODUCT: 3306.3 mGycm HISTORY: perineal abscess DM consider NKFS COMPARISONS: None . FINDINGS: Contrast-enhanced CT of the abdomen and pelvis was performed following the intravenous administration of iodinated contrast. The heart is top normal in size. There is a left lower lobe pulmonary nodule image 14, 0.5 cm. ABDOMEN: There is mild fatty infiltration of the liver without focal hepatic lesion. The spleen, adrenal gland s, pancreas, gallbladder are unremarkable. There is no renal or ureteral calculus. There is no small or large bowel obstruction. Pelvis: The appendix is not seen. There is no evidence of appendicitis. There is no evidence of diverticuliti s. The prostate and urinary bladder are within normal limits. The patient reportedly has perineal abscess. Unfortunately, imaging was not performed through the inf erior aspect of the perineum. No abscess is seen in the visualized portion of the perineum There is no perirectal abscess. No evidence of necrotizing fasciitis is seen. IMPRESSION: ABDOMEN: No bowel obstruction Pelvis: No evidence of diverticulitis No perineal abscess is seen This document is electronically signed by Noah Mcdonough MD., September 16 2018 02:25:38 PM ET
[2018-09-16] MEDS ORDERED: BABY ASPIRIN PO ONE (14:42)
[2018-09-16] MEDS ORDERED: HumuLIN R IV ONE (14:43)
[2018-09-16] MEDS ORDERED: PROAIR IH PRN (17:59)
--- NOTE | 2018-09-16 17:59 | History and Physical Report ---
History of Present Illness Date of examination: 09/16/18 Date of admission: 09/16/18 14:44 Chief complaint: Perineal pain 1 week History of present illness: 33 year old AA male with iinsulin-dependent diabetes complaints of pain in the perineal region which is associated with swelling but not drainage. Pain in Perineal region and Testicles for 1 week. Noticed swelling and Induration in Perineal region.No pus or serous drainage.No fever or chills.Has been running high glucose levels.No fever or chills Past Medical History Diabetes: Yes Seizures: Yes Asthma: Yes Surgical History None Social History Smoking Status: Current Every Day Smoker Substance Use Type: Alcohol, Marijuana Family history Htn - Medications Home Medications: Home Medications Medication Instructions Recorded Confirmed Last Taken Type Insulin NPH/Regular [NovoLIN 70/30] 25 unit SUB-Q BIDDIAB #1 vial 10/07/16 Unknown Rx Metformin HCl [Glucophage] 1,000 mg PO BID #60 tablet 10/07/16 Unknown Rx Miconazole Nitrate [Athlete's Foot] 71 gm TP BID #3 oz 10/07/16 Unknown Rx glipiZIDE [Glucotrol] 10 mg PO BID #60 tab 10/07/16 Unknown Rx ALBUTEROL Inhaler (OR & NICU) 2 puff IH QID PRN #1 inhalation 08/23/18 Unknown Rx [ProAir HFA Inhaler] Benzonatate [Tessalon Perles] 100 mg PO Q8HR PRN #20 capsule 08/23/18 Unknown Rx guaiFENesin/CODEINE [Robitussin AC] 5 ml PO Q6H PRN #100 oral.liqd 08/23/18 Unknown Rx predniSONE [Deltasone] 20 mg PO BID #6 tab 08/23/18 Unknown Rx Review of Systems ROS: Stated complaint: TESTICULAR PAIN Other details as noted in HPI Constitutional: denies: chills, fever Eyes: denies: eye pain, eye discharge, vision change ENT: denies: ear pain, throat pain Respiratory: denies: cough, shortness of breath, wheezing Cardiovascular: denies: chest pain, palpitations Endocrine: no symptoms reported Gastrointestinal: denies: abdominal pain, nausea, diarrhea Genitourinary: as per HPI, frequency. denies: urgency, dysuria Musculoskeletal: denies: back pain, joint swelling, arthralgia Skin: as per HPI. denies: rash, lesions Neurological: denies: headache, weakness, paresthesias Psychiatric: denies: anxiety, depression Hematological/Lymphatic: denies: easy bleeding, easy bruising Medications and Allergies Allergies Allergy/AdvReac Type Severity Reaction Status Date / Time No Known Allergies Allergy Verified 09/16/18 08:29 Home Medications Medication Instructions Recorded Confirmed Last Taken Type Insulin NPH/Regular [NovoLIN 70/30] 25 unit SUB-Q BIDDIAB #1 vial 10/07/16 09/16/18 Unknown Rx Metformin HCl [Glucophage] 1,000 mg PO BID #60 tablet 10/07/16 09/16/18 Unknown Rx glipiZIDE [Glucotrol] 10 mg PO BID #60 tab 10/07/16 09/16/18 Unknown Rx ALBUTEROL Inhaler (OR & NICU) 2 puff IH QID PRN #1 inhalation 08/23/18 09/16/18 Unknown Rx [ProAir HFA Inhaler] Exam - Constitutional Vitals: Temp Pulse Resp BP Pulse Ox 98.4 F 90 18 118/60 95 09/16/18 09:11 09/16/18 16:43 09/16/18 16:43 09/16/18 16:43 09/16/18 16:43 General appearance: Present: no acute distress, well-nourished - EENT Eyes: Present: PERRL ENT: hearing intact, clear oral mucosa - Neck Neck: Present: supple, normal ROM - Respiratory Respiratory effort: normal Respiratory: bilateral: CTA - Cardiovascular Heart rate: 78 Rhythm: regular Heart Sounds: Present: S1 & S2. Absent: rub, click - Extremities Extremities: no ischemia, pulses intact, pulses symmetrical, No edema Extremity abnormal: other (Perinea swelling and induration present .No fluctuation) Peripheral Pulses: within normal limits - Abdominal General gastrointestinal: Present: soft, tender (In Perineal region), non- distended, normal bowel sounds Male genitourinary: Present: normal - Integumentary Integumentary: Present: clear, warm, dry - Musculoskeletal Musculoskeletal: gait normal, strength equal bilaterally - Psychiatric Psychiatric: appropriate mood/affect, intact judgment & insight - Neurologic Neurologic: CNII-XII intact, moves all extremities Results - Labs CBC & Chem 7: 09/17/18 06:32 09/16/18 10:30 Labs: Laboratory Last Values WBC 10.1 K/mm3 (4.5-11.0) 09/16/18 10:30 RBC 4.83 M/mm3 (3.65-5.03) 09/16/18 10:30 Hgb 13.7 gm/dl (11.8-15.2) 09/16/18 10:30 Hct 40.2 % (35.5-45.6) 09/16/18 10:30 MCV 83 fl (84-94) L 09/16/18 10:30 MCH 28 pg (28-32) 09/16/18 10:30 MCHC 34 % (32-34) 09/16/18 10:30 RDW 13.8 % (13.2-15.2) 09/16/18 10:30 Plt Count 149 K/mm3 (140-440) 09/16/18 10:30 Lymph % (Auto) 16.6 % (13.4-35.0) 09/16/18 10:30 [place] % (Auto) 5.6 % (0.0-7.3) 09/16/18 10:30 Eos % (Auto) 1.5 % (0.0-4.3) 09/16/18 10:30 Baso % (Auto) 0.5 % (0.0-1.8) 09/16/18 10:30 Lymph # 1.7 K/mm3 (1.2-5.4) 09/16/18 10:30 [place] # 0.6 K/mm3 (0.0-0.8) 09/16/18 10:30 Eos # 0.1 K/mm3 (0.0-0.4) 09/16/18 10:30 Baso # 0.1 K/mm3 (0.0-0.1) 09/16/18 10:30 Seg Neutrophils % 75.8 % (40.0-70.0) H 09/16/18 10:30 Seg Neutrophils # 7.7 K/mm3 (1.8-7.7) 09/16/18 10:30 PT 13.2 Sec. (12.2-14.9) 09/16/18 11:32 INR 1.03 (0.87-1.13) 09/16/18 11:32 APTT 25.1 Sec. (24.2-36.6) 09/16/18 11:32 Sodium 134 mmol/L (137-145) L 09/16/18 10:30 Potassium 3.9 mmol/L (3.6-5.0) 09/16/18 10:30 Chloride 94.7 mmol/L (98-107) L 09/16/18 10:30 Carbon Dioxide 24 mmol/L (22-30) 09/16/18 10:30 19 mmol/L 09/16/18 10:30 BUN 13 mg/dL (9-20) 09/16/18 10:30 1.1 mg/dL (0.8-1.5) 09/16/18 10:30 Estimated GFR > 60 ml/min 09/16/18 10:30 12 % 09/16/18 10:30 Glucose 482 mg/dL (75-100) H 09/16/18 10:30 POC Glucose 304 (70-105) H 09/16/18 17:42 Lactic Acid 1.00 mmol/L (0.7-2.0) 09/16/18 11:58 Calcium 8.9 mg/dL (8.4-10.2) 09/16/18 10:30 0.50 mg/dL (0.1-1.2) 09/16/18 11:16 < 0.2 mg/dL (0-0.2) 09/16/18 11:16 0.3 mg/dL 09/16/18 11:16 AST 11 units/L (5-40) 09/16/18 11:16 ALT 20 units/L (7-56) 09/16/18 11:16 89 units/L (35-129) 09/16/18 11:16 NT-Pro-B Natriuret Pep < 5 pg/mL (0-450) 09/16/18 11:16 7.6 g/dL (6.3-8.2) 09/16/18 11:16 3.9 g/dL (3.9-5) 09/16/18 11:16 1.1 % 09/16/18 11:16 Yellow (Yellow) 09/16/18 09:26 Clear (Clear) 09/16/18 09:26 6.0 (5.0-7.0) 09/16/18 09:26 Ur Specific [place] 1.035 (1.003-1.030) H 09/16/18 09:26 <15 mg/dl mg/dL (Negative) 09/16/18 09:26 >=500 mg/dL (Negative) 09/16/18 09:26 20 mg/dL (Negative) 09/16/18 09:26 Sm (Negative) 09/16/18 09:26 Neg (Negative) 09/16/18 09:26 Neg (Negative) 09/16/18 09:26 4.0 mg/dL (<2.0) 09/16/18 09:26 Ur Leukocyte Esterase Neg (Negative) 09/16/18 09:26 1.0 /HPF (0.0-6.0) 09/16/18 09:26 3.0 /HPF (0.0-6.0) 09/16/18 09:26 Few /HPF 09/16/18 09:26 Short CBC 09/16/18 09/17/18 Range/Units 10:30 06:32 WBC 10.1 6.8 (4.5-11.0) K/mm3 Hgb 13.7 13.5 (11.8-15.2) gm/dl Hct 40.2 39.6 (35.5-45.6) % Plt Count 149 128 L (140-440) K/mm3 BMP 09/16/18 10:30 Sodium 134 L Potassium 3.9 Chloride 94.7 L Carbon Dioxide 24 BUN 13 Creatinine 1.1 Glucose 482 H Calcium 8.9 Liver Function 09/16/18 Range/Units 11:16 Total Bilirubin 0.50 (0.1-1.2) mg/dL Direct Bilirubin < 0.2 (0-0.2) mg/dL AST 11 (5-40) units/L ALT 20 (7-56) units/L Alkaline Phosphatase 89 (35-129) units/L Albumin 3.9 (3.9-5) g/dL Urine 09/16/18 Range/Units 09:26 Urine Color Yellow (Yellow) Urine pH 6.0 (5.0-7.0) Ur Specific [place] 1.035 H (1.003-1.030) Urine Protein <15 mg/dl (Negative) mg/dL Urine Glucose (UA) >=500 (Negative) mg/dL - Imaging and Cardiology EKG: report reviewed Imaging and Cardiology: Testicular ultrasound FINDINGS: Real-time ultrasound of the scrotum was performed. The right testicle measures 5.3 x 2.4 x 3.2 cm. There is no evidence of testicular mass or testicular torsion. The right epididymis measures 1.1 x 0.9 x 1.2 cm. There is a right epididymal cyst 0.4 x 0.5 cm. There is a hypoechoic noncystic region in the epididymal body which could represent epididymal mass. This does not appear hypervascular and is therefore thought unlikely to represent epididymitis. The left testicle measures 5.5 x 2.2 x 2.8 cm. There is a lower pole thinly septated testicular cyst, 1.1 x 0.6 x 0.9 cm. The left epididymal head measures 1.2 x 1.2 x 1.2 cm. IMPRESSION: No evidence of testicular torsion Septated left testicular cyst Hypoechoic lesion in the right epididymal body which does not appear to represen t cysts. It could represent a solid epididymal lesion Abd Ct IMPRESSION: ABDOMEN: No bowel obstruction Pelvis: No evidence of diverticulitis No perineal abscess is seen This document is electronically signed by Noah Mcdonough MD., September 16 2018 02:25:38 PM ET Assessment and Plan Advance Directives: Yes (Full code) VTE prophylaxis?: Chemical Plan of care discussed with patient/family: Yes - Patient Problems (1) Abscess or cellulitis of perineum Current Visit: Yes Status: Acute Plan to address problem: IV abx for now Surgery consuilt Possibly no I/D at this time (2) Uncontrolled diabetes mellitus Current Visit: Yes Status: Chronic Qualifiers: Diabetes mellitus type: type 2 Plan to address problem: Not taking insulin properly Initiated on Insulin 70/30 SQ BID and coverage Check a1c (3) Asthma Current Visit: Yes Status: Chronic Qualifiers: Asthma severity: unspecified severity Plan to address problem: Cont Bronchodilators prn (4) Hyponatremia Current Visit: Yes Status: Acute Plan to address problem: Mild Should correct with IV Fluids (5) DVT prophylaxis Current Visit: Yes Status: Acute Plan to address problem: On Lovenox and GI prophylaxis
[2018-09-16] MEDS ORDERED: ZOFRAN IV PRN (18:01)
[2018-09-16] MEDS ORDERED: SODIUM CHLORIDE FLUSH SYRINGE 10 ML IV PRN (18:01)
[2018-09-16] MEDS ORDERED: TYLENOL PO PRN (18:01)
[2018-09-16] MEDS ORDERED: REGLAN IV PRN (18:02)
[2018-09-16] MEDS: HumaLOG SUB-Q SCH ×2 (18:51→23:39)
[2018-09-16] MEDS ORDERED: VANCOMYCIN PHARMACY TO DOSE IV SCH (19:00)
[2018-09-16] MEDS ORDERED: NACL 0.9% 1000 ML 1,000 ML IV SCH (19:00)
[2018-09-16] MEDS ORDERED: PROVENTIL IH PRN (19:34)
[2018-09-16] MEDS: VANCOMYCIN 2,000 MG in NACL 0.9% 500 ML 500 ML IV SCH (19:58)
[2018-09-16] MEDS: ZOSYN/NS 4.5GM/100ML 4.5 GM/100 ML VIAL IV SCH (21:19)
[2018-09-16] MEDS ORDERED: NON-FORMULARY (Metformin Hcl [Glucophage] 1,000 MG) PO SCH (22:00)
[2018-09-16] MEDS: SODIUM CHLORIDE FLUSH SYRINGE 10 ML IV SCH (23:39)
[2018-09-17] MEDS: PERCOCET 5/325 PO PRN ×2 (00:31→09:33)
[2018-09-17] MEDS: ZOSYN/NS 4.5GM/100ML 4.5 GM/100 ML VIAL IV SCH ×3 (05:55→21:44)
[2018-09-17] MEDS: VANCOMYCIN 2,000 MG in NACL 0.9% 500 ML 500 ML IV SCH ×2 (07:11→18:26)
[2018-09-17 07:39] LABS: Basophils # (Auto) 0.1 K/mm3 (0.0-0.1); Basophils % (Auto) 0.8 % (0.0-1.8); Eosinophils # (Auto) 0.3 K/mm3 (0.0-0.4); Eosinophils % (Auto) 4.4 % (0.0-4.3); Hematocrit 39.6 % (35.5-45.6); Hemoglobin 13.5 gm/dl (11.8-15.2); Lymphocytes # (Auto) 1.6 K/mm3 (1.2-5.4); Lymphocytes % (Auto) 24.1 % (13.4-35.0); Mean Corpuscular HGB Conc 34 % (32-34); Mean Corpuscular Volume 82 fl (84-94); Monocytes # (Auto) 0.4 K/mm3 (0.0-0.8); Monocytes % (Auto) 6.1 % (0.0-7.3); Platelet Count 128 K/mm3 (140-440); Red Cell Distribution Width 13.8 % (13.2-15.2)
[2018-09-17 08:09] LABS: Alanine Aminotransferase 16 units/L (7-56); Albumin 3.5 g/dL (3.9-5); BUN/Creatinine Ratio 11; Blood Urea Nitrogen 11 mg/dL (9-20); Calcium 8.4 mg/dL (8.4-10.2); Hemolysis Index 7
[2018-09-17] MEDS: HumaLOG SUB-Q SCH ×4 (09:05→22:37)
[2018-09-17] MEDS: GLUCOPHAGE PO SCH ×2 (09:06→18:20)
[2018-09-17] MEDS: SODIUM CHLORIDE FLUSH SYRINGE 10 ML IV SCH ×2 (12:51→21:44)
--- NOTE | 2018-09-17 18:22 | Progress Note ---
Assessment and Plan Advance Directives: Yes (Full code) VTE prophylaxis?: Chemical Plan of care discussed with patient/family: Yes - Patient Problems (1) Abscess or cellulitis of perineum Current Visit: Yes Status: Acute Plan to address problem: IV abx for now Surgery consuilt Possibly no I/D at this time (2) Uncontrolled diabetes mellitus Current Visit: Yes Status: Chronic Qualifiers: Diabetes mellitus type: type 2 Plan to address problem: Not taking insulin properly Initiated on Insulin 70/30 SQ BID and coverage Check a1c (3) Asthma Current Visit: Yes Status: Chronic Qualifiers: Asthma severity: unspecified severity Plan to address problem: Cont Bronchodilators prn (4) Hyponatremia Current Visit: Yes Status: Acute Plan to address problem: Mild Should correct with IV Fluids (5) DVT prophylaxis Current Visit: Yes Status: Acute Plan to address problem: On Lovenox and GI prophylaxis Subjective Date of service: 09/17/18 Principal diagnosis: diabetes mellitus, dizziness of abscess, Interval history: See having pain and drainage from the perineal abscess. Denies any fever or chills. Objective - Exam Narrative Exam: Constitutional: Well-nourished well-developed. In no distress Head: Normocephalic atraumatic Eyes: Pupils are equal round and reactive to light Nose: No enlarged turbinates, no septal deviation. Mouth: Moist mucous membranes. Neck: Supple no thyromegaly. No bruit. No JVD Heart: Regular rate and rhythm, S1-S2 normal. No rubs murmurs or gallop Lungs: Clear to auscultation bilaterally. no rales or rhonchi Abdomen: Soft, nontender. Bowel sound are present. Extremities: No edema, no cyanosis, no clubbing. DAVIS: Abscess on the perineal body. Neuro: Alert oriented Oriented x3. No focal sensory or motor deficit. Skin: No rashes or hyperpigmented spots Musculoskeletal system: No joint pain or swelling Hematological: No petechia or subcutanous hemorrhages. Immunological: No multiple septic spots on the skin Lymphatic: No generalized lymphadenopathy Psychiatry: Euthymic. Calm. - Labs CBC & Chem 7: 09/17/18 06:32 09/17/18 06:32 Labs: Abnormal lab results 09/16/18 09/16/18 09/17/18 Range/Units 10:30 20:54 06:32 MCV 82 L (84-94) fl Plt Count 128 L (140-440) K/mm3 Eos % (Auto) 4.4 H (0.0-4.3) % Glucose (75-100) mg/dL POC Glucose 302 H (70-105) Hemoglobin A1c 10.4 H (4-6) % Albumin (3.9-5) g/dL 09/17/18 09/17/18 09/17/18 Range/Units 06:32 07:46 12:29 MCV (84-94) fl Plt Count (140-440) K/mm3 Eos % (Auto) (0.0-4.3) % Glucose 231 H (75-100) mg/dL POC Glucose 250 H 332 H (70-105) Hemoglobin A1c (4-6) % Albumin 3.5 L (3.9-5) g/dL 09/17/18 Range/Units 17:21 MCV (84-94) fl Plt Count (140-440) K/mm3 Eos % (Auto) (0.0-4.3) % Glucose (75-100) mg/dL POC Glucose 246 H (70-105) Hemoglobin A1c (4-6) % Albumin (3.9-5) g/dL
[2018-09-18] MEDS: ZOSYN/NS 4.5GM/100ML 4.5 GM/100 ML VIAL IV SCH ×3 (05:23→22:19)
[2018-09-18] MEDS: VANCOMYCIN 2,000 MG in NACL 0.9% 500 ML 500 ML IV SCH ×2 (06:26→18:38)
[2018-09-18 07:27] LABS: Basophils % (Auto) 0.8 % (0.0-1.8); Eosinophils # (Auto) 0.3 K/mm3 (0.0-0.4); Eosinophils % (Auto) 4.6 % (0.0-4.3); Hematocrit 37.3 % (35.5-45.6); Hemoglobin 12.7 gm/dl (11.8-15.2); Lymphocytes # (Auto) 1.5 K/mm3 (1.2-5.4); Lymphocytes % (Auto) 25.1 % (13.4-35.0); Mean Corpuscular HGB Conc 34 % (32-34); Mean Corpuscular Volume 83 fl (84-94); Monocytes # (Auto) 0.3 K/mm3 (0.0-0.8); Platelet Count 146 K/mm3 (140-440); Red Blood Count 4.49 M/mm3 (3.65-5.03); Red Cell Distribution Width 13.5 % (13.2-15.2)
[2018-09-18 07:54] LABS: Alanine Aminotransferase 17 units/L (7-56); Albumin 3.3 g/dL (3.9-5); BUN/Creatinine Ratio 10; Blood Urea Nitrogen 10 mg/dL (9-20); Calcium 8.3 mg/dL (8.4-10.2); Hemolysis Index 3
--- NOTE | 2018-09-18 08:47 | Consultation ---
History of Present Illness Consult date: 09/18/18 Reason for consult: other (perianal abscess) Requesting physician: MORGAN SEAY Chief complaint: perineal pain - History of present illness History of present illness: 33-year-old male with a history of diabetes presents due to progressively worsening perineal pain for the past 5 days. He has never had anything like this before. It began to spontaneously drain last night which has led to some improvement in pain and pressure. Denies any fevers, chills, nausea, vomiting. Denies any prior surgeries or trauma to that area. Past History Past Medical History: diabetes, other (bronchitis) Past Surgical History: No surgical history Social history: denies: smoking, alcohol abuse Family history: no significant family history Medications and Allergies Allergies Allergy/AdvReac Type Severity Reaction Status Date / Time No Known Allergies Allergy Verified 09/16/18 08:29 Home Medications Medication Instructions Recorded Confirmed Last Taken Type Insulin NPH/Regular [NovoLIN 70/30] 25 unit SUB-Q BIDDIAB #1 vial 10/07/16 09/16/18 Unknown Rx Metformin HCl [Glucophage] 1,000 mg PO BID #60 tablet 10/07/16 09/16/18 Unknown Rx glipiZIDE [Glucotrol] 10 mg PO BID #60 tab 10/07/16 09/16/18 Unknown Rx ALBUTEROL Inhaler (OR & NICU) 2 puff IH QID PRN #1 inhalation 08/23/18 09/16/18 Unknown Rx [ProAir HFA Inhaler] Active Meds: Active Medications Acetaminophen (Tylenol) 650 mg PO Q4H PRN PRN Reason: Pain MILD(1-3)/Fever >100.5/CORLEY Albuterol (Proventil) 2.5 mg IH Q4HRT PRN PRN Reason: Shortness Of Breath Piperacillin Sod/Tazobactam Sod (Zosyn/Ns 4.5gm/100ml) 4.5 gm in 100 mls @ 200 mls/hr IV Q8HR [facility]; Protocol Last Admin: 09/18/18 05:23 Dose: 200 mls/hr Documented by: Vancomycin HCl 2,000 mg/ (Sodium Chloride) 540 mls @ 250 mls/hr IV Q12H [facility] Last Admin: 09/18/18 06:26 Dose: 250 mls/hr Documented by: Insulin Human Isoph/Insulin Regular (Humulin 70/30) 25 unit SUB-Q BIDDIAB [facility] Last Admin: 09/17/18 18:20 Dose: 25 unit Documented by: Insulin Human Lispro (Humalog) 0 unit SUB-Q [facility]; Protocol Last Admin: 09/17/18 22:37 Dose: 3 unit Documented by: Metformin HCl (Glucophage) 1,000 mg PO BIDDIAB [facility] Last Admin: 09/17/18 18:20 Dose: 1,000 mg Documented by: Metoclopramide HCl (Reglan) 10 mg IV Q6H PRN PRN Reason: Nausea And Vomiting Last Admin: 09/17/18 05:55 Dose: 10 mg Documented by: Ondansetron HCl (Zofran) 4 mg IV Q8H PRN PRN Reason: Nausea And Vomiting Oxycodone/Acetaminophen (Percocet 5/325) 1 tab PO Q6H PRN PRN Reason: Pain, Moderate (4-6) Last Admin: 09/17/18 09:33 Dose: 1 tab Documented by: Sodium Chloride (Sodium Chloride Flush Syringe 10 Ml) 10 ml IV BID [facility] Last Admin: 09/17/18 21:44 Dose: 10 ml Documented by: Sodium Chloride (Sodium Chloride Flush Syringe 10 Ml) 10 ml IV PRN PRN PRN Reason: LINE FLUSH Review of Systems - Constitutional chronic pain, no fever, no chills - Cardiovascular no chest pain, no shortness of breath - Respiratory no cough - Gastrointestinal other (perineal pain), no abdominal pain, no nausea, no vomiting, no hematemesis, no coffee ground emesis, no BRBPR, no melena, no hematochezia - Genitourinary difficulties fathering child Exam Vital Signs Temp Pulse Resp BP Pulse Ox 98 F 109 H 20 163/100 96 09/16/18 08:30 09/16/18 08:30 09/16/18 08:30 09/16/18 08:30 09/16/18 08:30 - General physical appearance Positive: no distress, no pain, obese - Eyes Positive: normal occular movement - Respiratory Positive: normal expansion, normal respiratory effort, clear to auscultation - Cardiovascular Rhythm: regular - Abdomen Abdomen: Present: soft. Absent: tender - Integumentary other (+induration and tenderness in perineal area. +purulent drainage. between base of scrotum and anus) - Neurologic Neurologic: alert and oriented to time, place and person, motor strength and sensation are grossly intact - Psychiatric Psychiatric: appropriate mood/affect, intact judgment & insight, cooperative Results - Labs 09/18/18 06:18 09/18/18 06:18 Abnormal lab results 09/17/18 09/17/18 09/17/18 Range/Units 12:29 17:21 22:05 MCV (84-94) fl Eos % (Auto) (0.0-4.3) % Glucose (75-100) mg/dL POC Glucose 332 H 246 H 225 H (70-105) Calcium (8.4-10.2) mg/dL Albumin (3.9-5) g/dL 09/18/18 09/18/18 09/18/18 Range/Units 06:18 06:18 08:14 MCV 83 L (84-94) fl Eos % (Auto) 4.6 H (0.0-4.3) % Glucose 184 H (75-100) mg/dL POC Glucose 195 H (70-105) Calcium 8.3 L (8.4-10.2) mg/dL Albumin 3.3 L (3.9-5) g/dL Diabetes panel 09/18/18 Range/Units 06:18 Sodium 141 (137-145) mmol/L Potassium 3.8 (3.6-5.0) mmol/L Chloride 103.4 (98-107) mmol/L Carbon Dioxide 24 (22-30) mmol/L BUN 10 (9-20) mg/dL Creatinine 1.0 (0.8-1.5) mg/dL Glucose 184 H (75-100) mg/dL Calcium 8.3 L (8.4-10.2) mg/dL AST 13 (5-40) units/L ALT 17 (7-56) units/L Alkaline Phosphatase 63 (35-129) units/L Total Protein 7.1 (6.3-8.2) g/dL Albumin 3.3 L (3.9-5) g/dL Calcium panel 09/18/18 Range/Units 06:18 Calcium 8.3 L (8.4-10.2) mg/dL Albumin 3.3 L (3.9-5) g/dL Pituitary panel 09/18/18 Range/Units 06:18 Sodium 141 (137-145) mmol/L Potassium 3.8 (3.6-5.0) mmol/L Chloride 103.4 (98-107) mmol/L Carbon Dioxide 24 (22-30) mmol/L BUN 10 (9-20) mg/dL Creatinine 1.0 (0.8-1.5) mg/dL Glucose 184 H (75-100) mg/dL Calcium 8.3 L (8.4-10.2) mg/dL Adrenal panel 09/18/18 Range/Units 06:18 Sodium 141 (137-145) mmol/L Potassium 3.8 (3.6-5.0) mmol/L Chloride 103.4 (98-107) mmol/L Carbon Dioxide 24 (22-30) mmol/L BUN 10 (9-20) mg/dL Creatinine 1.0 (0.8-1.5) mg/dL Glucose 184 H (75-100) mg/dL Calcium 8.3 L (8.4-10.2) mg/dL Total Bilirubin 0.50 (0.1-1.2) mg/dL AST 13 (5-40) units/L ALT 17 (7-56) units/L Alkaline Phosphatase 63 (35-129) units/L Total Protein 7.1 (6.3-8.2) g/dL Albumin 3.3 L (3.9-5) g/dL - Imaging CT scan - abdomen: report reviewed CT scan - pelvis: report reviewed Additional studies: testicular US Assessment and Plan - Patient Problems (1) Perineal abscess Current Visit: Yes Status: Acute Plan to address problem: Pt stable. Patient has spontaneously started draining the perineal abscess. We discussed observation versus a formal I&D to ensure adequate drainage. Patient elected to have a formal bedside I&D. I will gather the necessary equipment and returned later today. Consent will be done at that time. Please call with questions. time=30min
[2018-09-18] MEDS: HumaLOG SUB-Q SCH ×4 (09:05→22:19)
[2018-09-18] MEDS: GLUCOPHAGE PO SCH ×2 (09:59→18:39)
[2018-09-18] MEDS ORDERED: XYLOCAINE 1%/ EPI 1:100,000 INFILTRATI ONE (10:00)
[2018-09-18] MEDS: SODIUM CHLORIDE FLUSH SYRINGE 10 ML IV SCH ×2 (13:21→22:20)
--- NOTE | 2018-09-18 13:23 | Progress Note ---
Assessment and Plan Advance Directives: Yes (Full code) VTE prophylaxis?: Chemical Plan of care discussed with patient/family: Yes - Patient Problems (1) Abscess or cellulitis of perineum Current Visit: Yes Status: Acute Plan to address problem: IV abx Zosyn and vanc Surgery consuilt input appreciated (2) Uncontrolled diabetes mellitus Current Visit: Yes Status: Chronic Qualifiers: Diabetes mellitus type: type 2 Plan to address problem: Not taking insulin properly Initiated on Insulin 70/30 SQ BID and coverage Check A1c (3) Asthma Current Visit: Yes Status: Chronic Qualifiers: Asthma severity: unspecified severity Plan to address problem: Cont Bronchodilators prn (4) Hyponatremia Current Visit: Yes Status: Acute Plan to address problem: Mild Should correct with IV Fluids (5) DVT prophylaxis Current Visit: Yes Status: Acute Plan to address problem: On Lovenox and GI prophylaxis Subjective Date of service: 09/18/18 Principal diagnosis: diabetes mellitus, perineal of abscess, Interval history: See having pain and drainage from the perineal abscess. Denies any fever or chills. Objective - Exam Narrative Exam: Constitutional: Well-nourished well-developed. In no distress Head: Normocephalic atraumatic Eyes: Pupils are equal round and reactive to light Nose: No enlarged turbinates, no septal deviation. Mouth: Moist mucous membranes. Neck: Supple no thyromegaly. No bruit. No JVD Heart: Regular rate and rhythm, S1-S2 normal. No rubs murmurs or gallop Lungs: Clear to auscultation bilaterally. no rales or rhonchi Abdomen: Soft, nontender. Bowel sound are present. Extremities: No edema, no cyanosis, no clubbing. DAVIS: Abscess on the perineal body. Neuro: Alert oriented Oriented x3. No focal sensory or motor deficit. Skin: No rashes or hyperpigmented spots Musculoskeletal system: No joint pain or swelling Hematological: No petechia or subcutanous hemorrhages. Immunological: No multiple septic spots on the skin Lymphatic: No generalized lymphadenopathy Psychiatry: Euthymic. Calm. - Constitutional Vitals: Vital Signs - 12hr 09/18/18 09/18/18 04:58 12:25 Temperature 98.4 F 98.6 F Pulse Rate 81 70 Respiratory 24 20 Rate Blood Pressure 115/86 144/80 O2 Sat by Pulse 95 93 Oximetry - Labs CBC & Chem 7: 09/18/18 06:18 09/18/18 06:18 Labs: Abnormal lab results 09/17/18 09/17/18 09/18/18 Range/Units 17:21 22:05 06:18 MCV 83 L (84-94) fl Eos % (Auto) 4.6 H (0.0-4.3) % Glucose (75-100) mg/dL POC Glucose 246 H 225 H (70-105) Calcium (8.4-10.2) mg/dL Albumin (3.9-5) g/dL 09/18/18 09/18/18 09/18/18 Range/Units 06:18 08:14 12:29 MCV (84-94) fl Eos % (Auto) (0.0-4.3) % Glucose 184 H (75-100) mg/dL POC Glucose 195 H 273 H (70-105) Calcium 8.3 L (8.4-10.2) mg/dL Albumin 3.3 L (3.9-5) g/dL
[2018-09-18] MEDS ORDERED: XYLOCAINE 1% 20 mL INFILTRATI ONE (14:34)
[2018-09-18] MEDS ORDERED: XYLOCAINE 1% 20 mL ONE (14:35)
[2018-09-18] MEDS: PERCOCET 5/325 PO PRN (15:05)
--- NOTE | 2018-09-18 15:38 | Procedure Note ---
Date of procedure: 09/18/18 Pre-op diagnosis: perineal abscess Post-op diagnosis: same Procedure: I&D of perineal abscess Surgery, risks, benefits were discussed. All questions were answered. Consent was obtained. Timeout was called. Sterile prep was performed. One percent lidocaine was injected into the surrounding tissue. Wound was probed with a cotton-tipped applicator. Wound extended deep towards the left inguinal region. It went about 3-4 cm deep. It did not track elsewhere. Wound was sharply opened up in the direction towards the hip. Only the skin was cut. Cultures were obtained. Wound was thoroughly irrigated. A quarter inch Aakash drain was inserted and secured to the surrounding skin with 3-0 nylon. Skin was cleaned and dried. Dressings were placed. Patient tolerated the procedure well. There were no complications. Findings: Abscess pocket in the subcutaneous area of the left perineal area Anesthesia: local Surgeon: ALLAN DORAN Estimated blood loss: minimal Pathology: list (aerobic and anerobic cultures) Specimen disposition: to lab Condition: stable Disposition: floor
[2018-09-19] MEDS: ZOSYN/NS 4.5GM/100ML 4.5 GM/100 ML VIAL IV SCH ×2 (05:40→13:55)
[2018-09-19] MEDS: VANCOMYCIN 2,000 MG in NACL 0.9% 500 ML 500 ML IV SCH (06:27)
[2018-09-19] MEDS: HumaLOG SUB-Q SCH ×3 (08:54→18:04)
[2018-09-19] MEDS: GLUCOPHAGE PO SCH ×2 (09:36→18:03)
[2018-09-19] MEDS: SODIUM CHLORIDE FLUSH SYRINGE 10 ML IV SCH (09:38)
[2018-09-19 10:04] LABS: Basophils % (Auto) 0.5 % (0.0-1.8); Eosinophils # (Auto) 0.3 K/mm3 (0.0-0.4); Eosinophils % (Auto) 4.9 % (0.0-4.3); Hematocrit 39.2 % (35.5-45.6); Hemoglobin 13.3 gm/dl (11.8-15.2); Lymphocytes # (Auto) 1.7 K/mm3 (1.2-5.4); Lymphocytes % (Auto) 29.6 % (13.4-35.0); Mean Corpuscular HGB Conc 34 % (32-34); Mean Corpuscular Volume 82 fl (84-94); Monocytes # (Auto) 0.3 K/mm3 (0.0-0.8); Platelet Count 176 K/mm3 (140-440); Red Blood Count 4.76 M/mm3 (3.65-5.03); Red Cell Distribution Width 13.7 % (13.2-15.2)
[2018-09-19 10:17] LABS: Alanine Aminotransferase 17 units/L (7-56); Albumin 3.4 g/dL (3.9-5); BUN/Creatinine Ratio 8; Blood Urea Nitrogen 8 mg/dL (9-20); Calcium 9.1 mg/dL (8.4-10.2); Hemolysis Index 9
--- NOTE | 2018-09-19 14:32 | Progress Note ---
Assessment and Plan 33 yo M s/p I&D of perineal abscess, POD 1 Plan: 1. sitz baths TID and after every bowel movement 2. continue abx - would dc on augmentin for 10 days 3. wound cultures pending 4. prn pain control 5. stool softeners as needed 6. outpatient follow up with Dr. Bundy in 1 wk for malika drain removal. Wound care instructions explained to patient. Ok to dc from surgery standpoint. D/W Dr. Mercer. Thank you, please call with questions Subjective Date of service: 09/19/18 Narrative: Pt seen and examined. Feels well. No f/c. States there has been drainage from the perineal area. No pain. Having BMs Objective Vital Signs - 12hr 09/19/18 09/19/18 05:15 12:31 Temperature 97.3 F L 98.6 F Pulse Rate 75 62 Respiratory 20 20 Rate Blood Pressure 145/90 150/86 O2 Sat by Pulse 95 96 Oximetry - General physical appearance Narrative Exam: Gen: AAOx3. NAD CV: s1, S2+ Resp; even and unlabored Perineum: Malika drain visible as is abscess cavity. There is freely draining purulent fluid. Dressing in place. - Labs 09/19/18 09:18 09/19/18 09:18 Diabetes panel 09/19/18 Range/Units 09:18 Sodium 140 (137-145) mmol/L Potassium 3.5 L (3.6-5.0) mmol/L Chloride 102.1 (98-107) mmol/L Carbon Dioxide 25 (22-30) mmol/L BUN 8 L (9-20) mg/dL Creatinine 1.0 (0.8-1.5) mg/dL Glucose 166 H (75-100) mg/dL Calcium 9.1 (8.4-10.2) mg/dL AST 15 (5-40) units/L ALT 17 (7-56) units/L Alkaline Phosphatase 62 (35-129) units/L Total Protein 7.0 (6.3-8.2) g/dL Albumin 3.4 L (3.9-5) g/dL Calcium panel 09/19/18 Range/Units 09:18 Calcium 9.1 (8.4-10.2) mg/dL Albumin 3.4 L (3.9-5) g/dL Pituitary panel 09/19/18 Range/Units 09:18 Sodium 140 (137-145) mmol/L Potassium 3.5 L (3.6-5.0) mmol/L Chloride 102.1 (98-107) mmol/L Carbon Dioxide 25 (22-30) mmol/L BUN 8 L (9-20) mg/dL Creatinine 1.0 (0.8-1.5) mg/dL Glucose 166 H (75-100) mg/dL Calcium 9.1 (8.4-10.2) mg/dL Adrenal panel 09/19/18 Range/Units 09:18 Sodium 140 (137-145) mmol/L Potassium 3.5 L (3.6-5.0) mmol/L Chloride 102.1 (98-107) mmol/L Carbon Dioxide 25 (22-30) mmol/L BUN 8 L (9-20) mg/dL Creatinine 1.0 (0.8-1.5) mg/dL Glucose 166 H (75-100) mg/dL Calcium 9.1 (8.4-10.2) mg/dL Total Bilirubin 0.50 (0.1-1.2) mg/dL AST 15 (5-40) units/L ALT 17 (7-56) units/L Alkaline Phosphatase 62 (35-129) units/L Total Protein 7.0 (6.3-8.2) g/dL Albumin 3.4 L (3.9-5) g/dL
--- NOTE | 2018-09-19 15:17 | Discharge Summary ---
Providers - Providers Date of Admission: 09/16/18 14:44 Date of discharge: 09/19/18 Attending physician: MORGAN SEAY 09/17/18 16:48 Consult to Physician [CONS] Routine Comment: Consulting Provider: ALLAN DORAN Physician Instructions: Reason For Exam: perineal abscess 09/17/18 19:53 Consult to Wound/ET Nurse [CONS] Routine Reason For Exam: wound eval [facility] Condition: Stable Procedures: I&D of perineal abscess Surgery, risks, benefits were discussed. All questions were answered. Consent was obtained. Timeout was called. Sterile prep was performed. One percent lidocaine was injected into the surrounding tissue. Wound was probed with a cotton-tipped applicator. Wound extended deep towards the left inguinal region. It went about 3-4 cm deep. It did not track elsewhere. Wound was sharply opened up in the direction towards the hip. Only the skin was cut. Cultures were obtained. Wound was thoroughly irrigated. A quarter inch Henderson drain was inserted and secured to the surrounding skin with 3-0 nylon. Skin was cleaned and dried. Dressings were placed. Patient tolerated the procedure well. There were no complications. Findings: Abscess pocket in the subcutaneous area of the left perineal area Anesthesia: local Surgeon: ALLAN DORAN Estimated blood loss: minimal Pathology: list (aerobic and anerobic cultures) Specimen disposition: to lab Condition: stable Disposition: floor Hospital course: (1) Abscess or cellulitis of perineum Current Visit: Yes Status: Acute Plan to address problem: I and D done Drain placed D/c on Po Abx Augmentin 500 po tid for 10 days F/u with Surgery in one week (2) Uncontrolled diabetes mellitus Current Visit: Yes Status: Chronic Qualifiers: Diabetes mellitus type: type 2 Plan to address problem: Not taking insulin properly D/c on Insulin 70/30 SQ BID and coverage A1c 10.4 (3) Asthma Current Visit: Yes Status: Chronic Qualifiers: Asthma severity: unspecified severity Plan to address problem: Cont Bronchodilators prn (4) Hyponatremia Current Visit: Yes Status: Acute Plan to address problem: Corrected Disposition: - TO HOME OR SELFCARE Core Measure Documentation - Palliative Care Palliative Care/ Comfort Measures: Not Applicable - Core Measures Any of the following diagnoses?: none Exam - Constitutional Vitals: Temp Pulse Resp BP Pulse Ox 98.6 F 62 20 150/86 96 09/19/18 12:31 09/19/18 12:31 09/19/18 12:31 09/19/18 12:31 09/19/18 12:31 General appearance: Present: no acute distress, well-nourished - EENT Eyes: Present: PERRL ENT: hearing intact, clear oral mucosa - Neck Neck: Present: supple, normal ROM - Respiratory Respiratory effort: normal Respiratory: bilateral: CTA - Cardiovascular Heart rate: 78 Rhythm: regular Heart Sounds: Present: S1 & S2. Absent: rub, click - Extremities Extremities: no ischemia, pulses symmetrical, No edema Peripheral Pulses: within normal limits - Abdominal General gastrointestinal: Present: soft, non-tender, non-distended, normal bowel sounds, other (Perineal abscess with malika drain in place) Male genitourinary: Present: normal - Integumentary Integumentary: Present: clear, warm, dry - Musculoskeletal Musculoskeletal: gait normal, strength equal bilaterally - Psychiatric Psychiatric: appropriate mood/affect, intact judgment & insight - Neurologic Neurologic: CNII-XII intact, moves all extremities Plan Activity: no restrictions Diet: diabetic Follow up with: ALLAN DORAN MD [Staff Physician] - 7 Days PRIMARY CAREMD [Referring] - 3-5 Days
[2018-09-19 19:13] VITALS: BP 152/84
== END 2018-09-19 20:00 | disposition home or self-care (01) | DRG 580 ==
LOC: ED 08:27 → 3A 14:44
PROVIDERS: ADMIT Internal Medicine; ATTEND Internal Medicine
PROC: 0Y960ZZ Drainage of Left Inguinal Region, Open Approach (ICD-10-PCS; principal; 2018-09-18)
DX: L02.215 Cutaneous abscess of perineum (principal); E87.1 Hypo-osmolality and hyponatremia; L03.315 Cellulitis of perineum; J45.909 Unspecified asthma, uncomplicated; F17.200 Nicotine dependence, unspecified, uncomplicated; E11.65 Type 2 diabetes mellitus with hyperglycemia; R56.9 Unspecified convulsions; Z79.4 Long term (current) use of insulin
CPT/HCPCS: 36415; 74177; 80048; 80053; 80076; 81001; 82140; 82962; 83036; 83735; 83880; 85025; 85610; 85730; 87040; 87075; 87116; 93975; G0378; J1815; J2543; J2765; J3370; J7030; J7040; Q9967